=== PATIENT | male | born 1935 | race Caucasian/White ===

== ENCOUNTER 2018-11-30 14:34 | Inpatient (IN) | payer OTHER ==
[~2018-11-30] VITALS: Ht 167.6 cm; Wt 72.5 kg
[~2018-11-30 14:34] MED LIST: ACET325; ACET325 PO; ALBU90OI INH; ALUMAGX30; AMLO10 PO; AMLO5; AMLO5 PO; ASPI81EC; ASPI81EC PO; Atrovent Inha12.9 GM INH; BENA20 PO; BENADRYL 25MG; Benazepril HCl10 MG PO; CILO100 PO; CILO50; CLON.1 PO; CLON.3TP; CLON.3TP TP; CLOP75; CLOP75 PO; DIPH25 PO; DOCU100; DOCU100 PO; Dazidox10 MG PO; EDARBI 40 MG; FERR160 PO; FURO40 PO; GABA300 PO; GABA600 PO; GRALISE1 EACH PO; HYDACE10A; HYDACE10A PO; HYDACE10B PO; HYDACE5 PO; HYDR1TAB94 PO; INSLI100I SC; INSR10I SC; INSUASPI; INSUASPI SC; INSUL100I; INSULANI; INSULANI SC; IRON SULFATE; ISOMON30; ISOMON30 PO; Isosorbide Mono60 MG PO; LANS30EC; LANS30EC PO; LEVO750 PO; LISI5 PO; LORA1; METH5 PO; METO10 PO; METO100 PO; METO100ER PO; METO50 PO; MIRT15 PO; MORP15ER PO; MULVITB; NEBI10 PO; NITRO; OMEP20ER PO; OXYACE5T PO; OXYC10ER; OXYC10ER PO; POTCHL10ER PO; PROM25 PO; Prednisone50 MG PO; RAMI5 PO; REMERON; RENA VIT PO; SENN187 PO; SIMV10 PO; SIMV40 PO; SODBIC650 PO; VELTASSA8.4 GM PO; VITAMIN B COMPLEX; VITNEPH PO; Vitamin D2000 UNIT PO; ZINC220; ZINC220 PO; [UNRECOGNIZED DRUG - OTHER]; [UNRECOGNIZED DRUG - OTHER]
[2018-11-30] MEDS ORDERED: AMLO10 PO (15:02)
[2018-11-30] MEDS ORDERED: ATOR20 PO (15:03)
[2018-11-30 15:26] LABS: BASOPHILS ABSOLUTE AUTO 0.02 K/mm3 (0.00-0.23); BASOPHILS PERCENT AUTO 0 % (0-2); EOSINOPHILS PERCENT AUTO 0 % (0-6); Hematocrit 33.7 % (37.0-53.0); Hemoglobin 11.1 g/dL (13.5-17.5); IMMATURE GRAN ABSOLUTE AUTO 0.13 K/mm3 (0.00-0.10); IMMATURE GRAN PERCENT AUTO 1 % (0-1); LYMPHOCYTES ABSOLUTE AUTO 0.93 K/mm3 (0.84-5.20); LYMPHOCYTES PERCENT AUTO 7 % (21-46); MONOCYTES ABSOLUTE AUTO 0.26 K/mm3 (0.16-1.47); MONOCYTES PERCENT AUTO 2 % (4-13); Mean Corpuscular HGB 30.4 pg (26.0-34.0); Mean Corpuscular HGB Conc 32.9 g/dL (31.5-36.5); Mean Platelet Volume 10.6 fL (9.1-12.4); NEUTROPHILS ABSOLUTE AUTO 11.54 K/mm3 (1.96-9.15); NEUTROPHILS PERCENT AUTO 90 % (41-73); Platelet Count 336 K/mm3 (150-400); RDW Standard Deviation 47.9 fL (35.1-46.3); Red Blood Cell Count 3.65 M/mm3 (4.30-5.90); White Blood Cell Count 12.88 K/mm3 (4.00-11.30)
[2018-11-30 15:27] LABS: Mean Corpuscular Volume 92 fL (80-100)
[2018-11-30 15:48] LABS: Troponin I <0.015 ng/mL (0.000-0.040)
[2018-11-30 15:49] LABS: Alanine Aminotransfer (ALT/SGP 28 U/L (12-78); Albumin, Blood 3.3 g/dL (3.4-5.0); Albumin/Globulin Ratio 0.8 (0.8-1.8); Alk Phos 88 U/L (50-136); Anion Gap 11 mmol/L (6-16); Aspartate Aminotrans (AST/SGOT 10 U/L (12-37); Bilirubin, Total 0.3 mg/dL (0.1-1.0); Blood Urea Nitrogen 122 mg/dL (8-24); Bun/Creatinine Ratio 20.2 (12.0-20.0); CO2, Blood 17 mmol/L (21-32); Calcium, Blood 8.1 mg/dL (8.5-10.1); Chloride, Blood 112 mmol/L (98-108); Creatinine, Blood 6.04 mg/dL (0.60-1.20); Glomerular Filtration Rate 10 (60-); Glucose, Blood 261 mg/dL (70-99); Potassium, Blood 5.2 mmol/L (3.5-5.5); Sodium, Blood 140 mmol/L (136-145); Total Protein, Blood 7.3 g/dL (6.4-8.2)
[2018-11-30] MEDS ORDERED: GABA100 PO (19:39)
[2018-11-30] MEDS ORDERED: Ferrous Sulfat325 MG PO (20:42)
[2018-11-30] MEDS ORDERED: AMOX875 PO (20:42)
[2018-11-30] MEDS ORDERED: ALPR.5 PO (20:42)
[2018-12-01 04:02] LABS: BASOPHILS ABSOLUTE AUTO 0.02 K/mm3 (0.00-0.23); BASOPHILS PERCENT AUTO 0 % (0-2); EOSINOPHILS PERCENT AUTO 0 % (0-6); Hematocrit 34.3 % (37.0-53.0); IMMATURE GRAN PERCENT AUTO 1 % (0-1); LYMPHOCYTES ABSOLUTE AUTO 0.59 K/mm3 (0.84-5.20); LYMPHOCYTES PERCENT AUTO 8 % (21-46); MONOCYTES ABSOLUTE AUTO 0.09 K/mm3 (0.16-1.47); MONOCYTES PERCENT AUTO 1 % (4-13); Mean Corpuscular HGB 30.3 pg (26.0-34.0); Mean Corpuscular HGB Conc 32.1 g/dL (31.5-36.5); Mean Platelet Volume 10.8 fL (9.1-12.4); NEUTROPHILS ABSOLUTE AUTO 6.91 K/mm3 (1.96-9.15); NEUTROPHILS PERCENT AUTO 90 % (41-73); Platelet Count 310 K/mm3 (150-400); RDW Standard Deviation 48.9 fL (35.1-46.3); Red Blood Cell Count 3.63 M/mm3 (4.30-5.90); White Blood Cell Count 7.71 K/mm3 (4.00-11.30)
[2018-12-01 04:03] LABS: Mean Corpuscular Volume 95 fL (80-100)
[2018-12-01 04:20] LABS: Bun/Creatinine Ratio 21.8 (12.0-20.0); Calcium, Blood 7.7 mg/dL (8.5-10.1); Creatinine, Blood 5.64 mg/dL (0.60-1.20); Potassium, Blood 5.3 mmol/L (3.5-5.5)
--- NOTE | 2018-12-01 06:35 | NUR ---
SHIFT SUMMARY/ REDEIVED FROM ED AT 2015 LAST NOC. ABD CRAMPING REPORTED . AND CHRONIC PAIN AT BASELINE. ARTHRITIC. TACHEPNEC EXERTION W/ TRANSFER AND REPOSITIONING IN BED. SETTLED IN AND RESP RATE WNL . DOZING OFF TO SLEEP POST EATING SOME YOGURT. FLUIDS TAKEN AND H2 O GIVEN. REVIEWS NEGETIVE ASSESSMENT OF LONGTERM. SOCIAL SERVICE CONSULT ORDERED.EXTREME ANASARCA AND VARELA PATENT. REPORTS GREAT RELIEF POST VARELA PLACED IN ED AND PAIN MED WAS HELPFUL ALSO. VERY CLEAR MENTATION AND APPROPRIATE CONVERSATION. NOT EXACTLY SURE ABOUT EACH MED AND PLACED CALL TO LONGTERM AND NO ANSWER AND LEFT A MESSAGE. ENC TO SELF CARE W/ REPOSITIONING AND EXTREMELY STIFF AND PAINFUL BACK AND HAND JOINTS. AWARE NO ADDITIONAL PAIN MEDS ORDERED AND AGREES IT IS BASE LINE DISCOMFORT W/ CERTAIN MOVEMENT. 2-3 L ESTABLISHES WNL SAT. DENIES COPD . LUNGS SOUND VERY DIMINISHED AIR EXCHLANGE AND FAINT CRACKLES NOTED IN BASE. IVF DCD POST 1 LITER PER ORDER. NO ACUTE RESP ISSUES POST IVF. BP UP AND EARLY CATAPRES GIVEN. SR, FIRST DEGREE BBB. HR 70'S
--- NOTE | 2018-12-01 08:09 | NUR ---
ATTEMPT TO REACH DR PEREZ Attempt to reach provider regarding blood sugar of 425 this AM. Unable to reach provider, unable to leave message.
[2018-12-01 11:23] LABS: Glucose, Blood 610 mg/dL (70-99)
[2018-12-01] MEDS ORDERED: LOSA25 PO (11:30)
[2018-12-01] MEDS ORDERED: INSULANPEN SC (11:49)
[2018-12-01] MEDS ORDERED: Novolog Fl100 UNIT/1 SC (11:49)
[2018-12-01] MEDS ORDERED: Novolog Fl100 UNIT/1 (11:51)
[2018-12-01 13:16] LABS: Glucose, Blood 550 mg/dL (70-99)
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
[2018-12-02 05:07] LABS: Bun/Creatinine Ratio 22.8 (12.0-20.0); Calcium, Blood 7.9 mg/dL (8.5-10.1); Creatinine, Blood 5.17 mg/dL (0.60-1.20)
--- NOTE | 2018-12-02 06:54 | NUR ---
SHIFT SUMMARY. NO ACUTE CHANGES NOTED THIS SHIFT. PT WAS HYPERTENSIVE AT 185/76, PROVIDER WAS CALLED AND ORDERS OBTAINED FOR PRN HTN MEDICATION (SEE EMAR.) PT'S GLUCOSE THIS AM WAS CRITICAL LOW AT 42, PT WAS TREATED PER PROTOCOL,CBG WAS RECHECKED AND IT WAS 125. PT HAD NO COGNATIVE CHANGES DURING THIS TIME. PT DENIES ANY CHEST PAIN/PRESSURE, SOB OR N/V. VARELA IS PATENT, ATTACHED TO THE BED BED AND DRAINING TO GRAVITY. CALL LIGHT IN REACH, BED IS LOCKED AND LOW WILL CONTINUE TO MONITOR UNTIL REPORT IS GIVEN TO ONCOMING RN.
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
--- NOTE | 2018-12-02 19:43 | NUR ---
SHIFT SUMMARY Assumed care of pt at 0700. Report received from Yoon PALM. This AM, GENESIS Lazo notified this RN that pt was coughing up blood and having trouble breathing. Pt produced a quarter-sized amount of bloody sputum, which was different than the brown sputum this RN had previously visualized. RT Mariaelena notified that pt was having difficulty breathing. This RN encouraged pt to slow down his breathing, focusing on inhaling through his nose and exhaling through his mouth. Pt responded well to this breathing technique. Dr Salamanca updated by relief charge nurse Judi. Dr Salamanca in to see pt shortly afterwards. Discussed plan of care with provider. New orders entered. This RN requested nephrology consult from Dr Salamanca. New orders given. Pt stated he wanted this RN to call his son because "I don't think I am going to make it." This RN called the pt's son and left a message on his phone. The pt's son did not return the phone call. Pt's anxiety discussed with Dr Salamanca, new orders given. Nephrology consult notified by Judi PALM. New orders given. Pt continued to be anxious and tachypnic, so this RN disccused BiPAP with respiratory therapy and Dr Salamanca. CPAP/BIPAP protocol ordered. Pt responded well to CPAP and slept comfortably with CPAP in place for about 4 hours. Pt did not eat breakfast or lunch, therefore 6 units Humalog AC was held for these two meals. Additionally, Lantus was held as pt received 20 units as ordered, during previous night time babysitter. This evening, pt was breathing with more ease, but continued to verbalize impending doom, stating "I don't think I'm going to make it. My kidneys are giving out. I need to call my son so he knows what to do with my money and belongings." Chaplain Key notified. Dr Salamanca notified of pt's persistent hypertension. New orders entered by provider. Pt's son in to see pt this evening. Pt gave verbal permission for this RN to update the pt's son. The son inquires "What's going on? I had no idea my dad was even in the hospital until this evening." Update provided to son. Spoke regarding the pt's difficulty breathing and current kidney function as well as plan of care. Pt's son stated he had no additional questions. Bedside report given to Donny PALM.
[2018-12-03 04:02] LABS: Hematocrit 36.3 % (37.0-53.0); Hemoglobin 11.7 g/dL (13.5-17.5)
[2018-12-03 04:27] LABS: Alanine Aminotransfer (ALT/SGP 25 U/L (12-78); Albumin/Globulin Ratio 0.8 (0.8-1.8); Alk Phos 75 U/L (50-136); Anion Gap 12 mmol/L (6-16); Aspartate Aminotrans (AST/SGOT 10 U/L (12-37); Bilirubin, Total 0.5 mg/dL (0.1-1.0); Blood Urea Nitrogen 127 mg/dL (8-24); Bun/Creatinine Ratio 23.6 (12.0-20.0); CO2, Blood 17 mmol/L (21-32); Calcium, Blood 8.1 mg/dL (8.5-10.1); Chloride, Blood 112 mmol/L (98-108); Creatinine, Blood 5.38 mg/dL (0.60-1.20); Globulin, Blood 3.8 g/dL (2.2-4.0); Glomerular Filtration Rate 11 (60-); Glucose, Blood 258 mg/dL (70-99); Magnesium, Blood 2.4 mg/dL (1.6-2.4); Phosphorus, Blood 4.5 mg/dL (2.5-4.9); Potassium, Blood 5.4 mmol/L (3.5-5.5); Sodium, Blood 141 mmol/L (136-145); Total Protein, Blood 6.8 g/dL (6.4-8.2)
[2018-12-03 04:29] LABS: Prostate Specific Antigen 0.321 ng/mL (0.000-4.000)
--- NOTE | 2018-12-03 07:10 | NUR ---
MOTOR POOL DRIVER SUMMARY PT AAOX4 AND PLEASANT. COOPERATIVE WITH CARE. NO WHEEZING NOTED IN LUNGS THIS SHIFT. PT STATES "BREATHING FEELS A LITTLE BETTER TONIGHT". PT HAS BEEN ABLE TO REMAIN ON 2L O2 VIA NC THROUGH THE NIGHT, SATTING IN THE MID 90'S CONSISTENTLY. PT REPORTED ALL OVER CHRONIC PAIN THAT WAS RELIEVED WITH TYLENOL. PT REMAINS HYPERTENSIVE WITH MINIMAL RESPONSE TO IV HYDRALAZINE. SBP REMAINED IN 170'S EVEN AFTER HYDRALAZINE GIVEN. SPOKE WITH DR HOWARD REGARDING THIS, RECIEVED ORDER FOR IV LABETALOL. WILL CONTINUE TO MONITOR.
--- NOTE | 2018-12-03 13:06 | NUR ---
Spiritual care visit conducted. I entered patient's room and found him sitting in a chair in his room and alert. I introduced myself and patient welcomed me in. Therapeutic alliance was easily established and patient openly shared about his medical history, the pain of his divorce, his family unit complications and his work history. I listened empathically, provided companionship, heard confession and emotional support. Patient also stated that he plays guitar and said he would be interested in some music therapy which I agreed to supply if my schedule would allow for it. Patient thanked me for the visit.
--- NOTE | 2018-12-03 15:51 | NUR ---
Spiritual care visit conducted. Patient is known to this telegraphic typewriter operator from prior visits. Patient expressed an interest in music and guitar playing. I brought my guitar up to the patient so he could play and he did which evoked some emotions for him. I also played and sang a song for the patient which he said that he enjoyed. I also provided prayer and companionship. Patient responded well and showed evidence of an elevated mood. Patient expressed gratitude for the visit.
--- NOTE | 2018-12-03 20:04 | NUR ---
SHIFT SUMMARY Assumed care of pt at 0700. Report received from Yoon PALM. Pt remains on 2 LPM NC which is pt's home dose of oxygen. Pt refused to sit up in chair for breakfast, stating he was in too much pain. This RN encouraged mobility as pt has been in bed for over a day. Pt verbalized understanding that mobility was important but continued to refuse. Dr Salamanca in to see pt. Discussed the pt's blood pressures with provider. New orders entered. Also discussed positive sputum culture. Pt did not wear CPAP today. Decreased mood noted compared to previous day shifts. This RN requested Mechanical Engineering Intern Baron see pt. Pt assisted to chair by physical therapy. Pt remained in chair for about four hours. This afternoon, pt reported abdominal pain. Pt pointed to several locations among different quadrants when describing location. On palpation, all quadrants were tender with most pain in the RLQ. This RN placed call to Dr Salamanca to update. Dr Salamanca in to see pt. New orders given. Pt had one large bowel movement that was dark valladares/green in color. Bed maintained in lowest position. Call light in reach. Pt denies need at this time. Bedside report given to Jazlyn PALM.
--- NOTE | 2018-12-04 07:31 | NUR ---
shift summary: patient had x2 bm this shift, pain in abdomen improving. patient bs dropped drastically this shift, orange juice given with miranda improvement (see lab values). systolic blood pressures high, md notified and orders recieved but labetalol not given d/t fact that bp improved with different bp cuff. sanderson intact, patnet and draining well, call light within reach, bed low and locked and patient monitored closely.
--- NOTE | 2018-12-04 08:00 | NUR ---
PT LAYING IN BED AWAKE A/OX3, PLEASANT AND COOPERATIVE WITH CARE, FOLLOWS COMMANDS WELL, STATES HE IS COLD. PT IS ON 2LITERS 02 VIA N/C, RESP EVEN AND UNLABORED, NO COUGH NOTED, CLEAR IN UPPER KUMAR, CRACKLES IN BASES, HRR, TELE IN PLACE RUNNING SR PER MONITOR, SEE STRIP, EDEMA NOTED TO B/L LE AND ARMS, PP ARE FAINT, CAP REFILL <3 SEC, VS STABLE, AFEBRILE, IV SITE TO RIGHT ARM SITE IS CLEAR AND PATENT, BTX4, ABD FLAT SOFT NONTENDER, VARELA CATH DRAINING CLEAR YELLOW URINE, SKIN HAS BRUISINGS OTHERWISE INTACT. MARTINE, CALL LIGHT IN REACH.
[2018-12-04 08:49] LABS: Bun/Creatinine Ratio 24.7 (12.0-20.0); Calcium, Blood 8.3 mg/dL (8.5-10.1); Creatinine, Blood 5.86 mg/dL (0.60-1.20); Potassium, Blood 5.8 mmol/L (3.5-5.5)
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
--- NOTE | 2018-12-04 12:00 | NUR ---
cbg was over 500, lab draw was done, was in the 800's, call to Dr. Salamanca, he increased lantus to 20 gave extra 10 to make 20. will recheck. pt doing ok. call light in reach.
[2018-12-04 12:28] LABS: Glucose, Blood 866 mg/dL (70-99)
--- NOTE | 2018-12-04 13:45 | NUR ---
recheck registered high, lab actually went up to 892, Dr. Salamanca ordered to transfer to icu with insulin gtt. report given.
[2018-12-04 15:20] LABS: Glucose, Blood 897 mg/dL (70-99)
--- NOTE | 2018-12-04 16:39 | NUR ---
pt has been transfered to icu via bed for insulin gtt. report given to recieving nurse. all belongings went with pt.
--- NOTE | 2018-12-04 16:50 | NUR ---
ASSUMED CARE: REPORT RECIEVED FROM GWENDOLYN PALM. CBG CHECKED AND PT ON INSULIN GTT STARTING AT 5 UNITS/HR. VERIFIED WITH MARIVEL PALM. PT ON 2L SATTING AT 94%. AWAITING LAB FOR VERIFICATION OF BLOOD GLUCOSE.
[2018-12-04 18:03] LABS: Glucose, Blood 712 mg/dL (70-99)
--- NOTE | 2018-12-04 18:45 | NUR ---
SHIFT SUMMARY: PT TRANSFERRED FROM PCU THIS SHIFT FOR INCREASED BLOOD SUGARS. INSULIN DRIP AT 5 UNITS PER HOUR. AWAITING FURTHER LAB DRAWS FOR ACCURACY. PRASANNA AT 58 NOTED, SINUS RHYTHM OTHERWISE. NO FURTHER NEEDS OR CONCERNS NOTED AT THIS TIME
[2018-12-04 19:15] LABS: Glucose, Blood 578 mg/dL (70-99)
--- NOTE | 2018-12-04 19:31 | NUR ---
ASSUMED CARE PT. ALERT AND ORIENTED AT THIS TIME. DENIES PAIN. PT RESTING QUIELTY IN BED. CURRENTLY ON 2L NC, WHICH PT REPORTS HE USES AT HOME. CPAP AT BEDSIDE. PT. CURRENTLY ON INSULIN GTT AT 5U/HR. VARELA IN PLACE DRAINING TO GRAVITY. VSS AT THIS TIME. CALL LIGHT IN REACH.
--- NOTE | 2018-12-04 22:00 | NUR ---
DR. PAUL AT BEDSIDE.
--- NOTE | 2018-12-04 22:32 | NUR ---
CALL TO PROVIDER REGARDING INSULIN GTT ORDERS TO D/C INSULIN GTT AFTER BG BELOW 200, CONTINUE TO MONITOR BG CLOSELY AND RESTART INSULIN GTT IF NEEDED.
--- NOTE | 2018-12-05 01:36 | NUR ---
INSULIN GTT PLACED ON SB AT THIS TIME.
[2018-12-05 04:02] LABS: Magnesium, Blood 2.5 mg/dL (1.6-2.4)
[2018-12-05 04:04] LABS: Anion Gap 11 mmol/L (6-16); Blood Urea Nitrogen 152 mg/dL (8-24); Bun/Creatinine Ratio 27.1 (12.0-20.0); CO2, Blood 25 mmol/L (21-32); Calcium, Blood 8.1 mg/dL (8.5-10.1); Chloride, Blood 102 mmol/L (98-108); Creatinine, Blood 5.61 mg/dL (0.60-1.20); Glomerular Filtration Rate 10 (60-); Glucose, Blood 128 mg/dL (70-99); Phosphorus, Blood 6.7 mg/dL (2.5-4.9); Potassium, Blood 4.3 mmol/L (3.5-5.5); Sodium, Blood 138 mmol/L (136-145)
--- NOTE | 2018-12-05 04:43 | NUR ---
SHIFT SUMMARY PT. RESTING COMFORTABLY T/O NIGHT. PT. INSULIN GTT OFF THIS PM; WITH SUGARS RECHECKED PER ORDER. BG REMAINS STABLE AT THIS TIME. PT. VSS T/O SHIFT.
--- NOTE | 2018-12-05 18:14 | NUR ---
DOING VERY WELL THIS AFTERNOON. WATCHING TV. CHEMBGS WITH INSULIN COVERAGE DOING WERY WELL. HAS BEEN MED FLOOR STATUS. GOOD UA O/P FROM LASIX BID. EATING WELL STILL ON 1000ML PER 24 HOURS OF PO FLUID.
--- NOTE | 2018-12-05 19:30 | NUR ---
ASSUMED CARE OF PT, REPORT RECEIVED. PT IS RESTING QUIETLY RECLINING IN BED, C/O FEELING SOMEWHAT SHORT OF BREATH OTHERSWISE DENIES N/V, DENIES CP/PRESSURE, DENIES NUMBNESS/TINGLING EXCEPT FOR BASELINE NEUROPATHY. STATES THAT HIS HEELS HURT AND RATES PAIN 7/10 THAT STARTED THIS AFTERNOON, BILAT HEELS WITH SMALL AREAS OF REDNESS LESS THAN 1 CM, BLANCHES EASILY WITH BRISK CAP REFILL, PT ENCOURAGED TO FLOAT HEELS OFF BED, DISCUSSED RISK OF PRESSURE INJURY TO HEELS. LUNGS CLEAR UPPER BILAT, DIM BASES WITH FAINT, FINE CRACKLES, SATS MID 90S WITH OXYGEN AT 2 L/MIN VIA NC, RESP RATE 20, PT DENIES INCREASING SOB, DECLINES INTERVENTION AT THIS TIME. HRR, S1 S2 PRESENT, MAINTAINING BP, GENERALIZED EDEMA, NON PITTING, PULSES FULL AND PALPABLE, SKIN PWD. VARELA IN PLACE DRAINING CLEAR YELLOW URINE TO GRAVITY.
[2018-12-06 04:20] LABS: Hematocrit 35.2 % (37.0-53.0); Hemoglobin 11.7 g/dL (13.5-17.5)
[2018-12-06 04:41] LABS: Albumin, Blood 2.9 g/dL (3.4-5.0); Anion Gap 13 mmol/L (6-16); Blood Urea Nitrogen 148 mg/dL (8-24); Bun/Creatinine Ratio 25.4 (12.0-20.0); CO2, Blood 27 mmol/L (21-32); Calcium, Blood 8.2 mg/dL (8.5-10.1); Chloride, Blood 97 mmol/L (98-108); Creatinine, Blood 5.83 mg/dL (0.60-1.20); Glomerular Filtration Rate 10 (60-); Glucose, Blood 165 mg/dL (70-99); Magnesium, Blood 2.2 mg/dL (1.6-2.4); Phosphorus, Blood 5.8 mg/dL (2.5-4.9); Potassium, Blood 4.1 mmol/L (3.5-5.5); Sodium, Blood 137 mmol/L (136-145)
--- NOTE | 2018-12-06 07:40 | NUR ---
PT RESTS QUIETLY THROUGHOUT SHIFT, CONTINUED TO ENCOURAGE FLOATING HEELS, PT DOES VERBALIZE UNDERSTANDING THIS AM AFTER ATTEMPT TO STATE THAT PAIN TO HEELS IS "JUST MY NEUROPATHY" DISCUSSED REDDENED AREA TO HEELS AND THAT HE IS AT INCREASED RISK FOR PRESSURE RELATED INJURY. OTHERWISE NO ACUTE CHANGES THIS SHIFT.
--- NOTE | 2018-12-06 09:15 | NUR ---
ASSUMED CARE: REPORT RECEIVED FROM VARGHESE Gardner RN. ASSUMED CARE OF THIS PT AT APPROX 0700. ON ASSESSMENT, THE PT IS RESTING QUIETLY. HE DENIES NEEDS AT THIS TIME, STS CHRONIC PAIN TO BLE IS SLIGHTLY WORSE THAN BASELINE. RELIEF W/ REPOSITION. WILL CONTINUE TO MONITOR & UPDATE NEEDED.
--- NOTE | 2018-12-06 16:41 | NUR ---
BRENNA LAMBERT'Paulina AT 1630 WITH 1000CC CL. YELLOW URINE EMPTIED.
--- NOTE | 2018-12-06 19:40 | NUR ---
ASSESSMENT ASSUMED CARE OF PT. PT SLEEPING WHILE SITTING UP IN BED. AWAKENS EASILY TO VERBAL STIMULI. DENIES PAIN OR DISCOMFORT. LUNGS CLEAR BUT DECREASED IN THE BASE ON 2 LITERS O2 VIA NC. HEART RATE REGULAR, BP STABLE. PT MOVING SELF AROUND IN BED. IV TO RIGHT AC AND LEFT WRIST SALINE LOCKED, SITES CLEAR. BT+ ABD SOFT AND NONTENDER. ATTENDS CLEAN AND DRY.
--- NOTE | 2018-12-06 20:50 | NUR ---
BLOOD GLUCOSE/HS MEDS PT SLEEPING, AWAKENS EASILY. BLOOD GLUCOSE 198, 3 UNITS INSULIN GIVEN. HS MEDS GIVEN.
--- NOTE | 2018-12-06 21:45 | NUR ---
BLADDER SCAN/VARELA PT UP TO BSC WITH ONE ASSIST. HAD BM BUT NO VOID. BLADDER SCAN DONE [address] ROMERO. VARELA CATH 16 FR PLACED PT TOLERATED WELL. DR ROMERO SAID "NO UA NEEDED".
--- NOTE | 2018-12-07 03:35 | NUR ---
REASSESSMENT PT SLEEPING, AWAKENS EASILY. VSS. LABS DRAWN. PT REPOSITIONED. DENIES PAIN OR DISCOMFORT
[2018-12-07 04:01] LABS: Hematocrit 34.6 % (37.0-53.0); Hemoglobin 11.3 g/dL (13.5-17.5)
[2018-12-07 04:20] LABS: Albumin, Blood 2.8 g/dL (3.4-5.0); Anion Gap 13 mmol/L (6-16); CO2, Blood 31 mmol/L (21-32); Chloride, Blood 92 mmol/L (98-108); Creatinine, Blood 5.87 mg/dL (0.60-1.20); Glomerular Filtration Rate 10 (60-); Glucose, Blood 166 mg/dL (70-99); Magnesium, Blood 2.3 mg/dL (1.6-2.4); Phosphorus, Blood 5.6 mg/dL (2.5-4.9); Potassium, Blood 4.1 mmol/L (3.5-5.5); Sodium, Blood 136 mmol/L (136-145)
[2018-12-07 04:31] LABS: Blood Urea Nitrogen 153 mg/dL (8-24); Bun/Creatinine Ratio 26.1 (12.0-20.0)
--- NOTE | 2018-12-07 05:48 | NUR ---
SHIFT SUMMARY PT RESTING QUIETLY THROUGHTOUT THE NIGHT. TURNING AND MOVING SELF IN BED. VSS. URINE RETENTION NOTED WHEN PT UNABLE TO VOID AND BLADDER SCAN DONE. VARELA CATH PLACED WITH CLEAR YELLOW URINE DRAINING. UP TO BATHROOM ONCE WITH STANDBY ASSIST FOR BOWEL MOVEMENT. REPORT TO ON COMING NURSE
--- NOTE | 2018-12-07 06:15 | NUR ---
MD DR ROMERO INTO SEE PATIENT. LABS REVIEWED WITH DR ROMERO. RECIEVED ORDER FOR LABS 12/08/18.
--- NOTE | 2018-12-07 09:10 | NUR ---
ASSUMED CARE: REPORT RECEIVED FROM MARCY Gallardo RN. ASSUMED CARE OF THIS PT AT APPROX 0700. ON ASSESSMENT, THE PT IS SITTING UP IN BED FOR PO INTAKE. HE DENIES NEEDS OR PAIN AT THIS TIME & IS PLEASANT/COOPERATIVE W/ CARE. PLAN IS FOR POSS TX TO SNF IN [place] TODAY, PER D/C PLANNING. WILL CONTINUE TO MONITOR & UPDATE NEEDED.
--- NOTE | 2018-12-07 11:28 | NUR ---
Spiritual care visit conducted. As I entered the patient's room I found him sitting up in bed and alert. Patient shared about his concerns for placement after his stay in the hospital but stated that he was feeling stronger. I provided companionship and prayer. Patient responded well and showed signs of reduced stress.
--- NOTE | 2018-12-07 12:19 | NUR ---
Met with David today in the ICU. He is awake and A/O x4. This publicity writer has attempted to contact pt's PCP office to see if they have a POLST form on file. Pt is agreeable to fill out a new POLST form. Treatment options and resusitation information explained and questions answered. At this time pt wishes to be a full code, with full treatments and a trial of TF. Spoke with Dr. Salamanca who will sign pt's new POLST form. Will plan to scan completed, signed POLST form to medical records and to [place] POL[place] registry once it is complete.
--- NOTE | 2018-12-07 17:56 | NUR ---
Call received that POLST completed earlier with our RN and pt has been signed by the Dr. Copies faxed to medical records and original returned to chart.
--- NOTE | 2018-12-07 18:43 | NUR ---
SHIFT SUMMARY: PT REMAINS A&O, PLEASANT & COOPERATIVE W/ CARE. LS ARE DIM & OCCASIONALLY WHEEZING IN BASES. PT ON HOME DOSE OF O2, 2L NC W/ SATS > 92%. NO TELE. BT x4, PT HAS GOOD APPETITE & NO C/O NAUSEA. VARELA CATH IN PLACE FOR RETENTION, PT WILL LIKELY REQUIRE BLADDER TRAINING PRIOR TO VARELA REMOVAL AGAIN. VARELA IS PATENT/DRAINING CLEAR YELLOW URINE. PLAN IS FOR D/C TO SNF IN [place] ON THURSDAY (12/09/18) PER D/C PLANNING. WILL CONTINUE TO MONITOR & REPORT OFF TO ONCOMING RN.
[2018-12-08 04:42] LABS: Hematocrit 31.9 % (37.0-53.0); Hemoglobin 10.5 g/dL (13.5-17.5)
[2018-12-08 05:07] LABS: Albumin, Blood 2.8 g/dL (3.4-5.0); Anion Gap 14 mmol/L (6-16); Blood Urea Nitrogen 151 mg/dL (8-24); Bun/Creatinine Ratio 24.3 (12.0-20.0); CO2, Blood 28 mmol/L (21-32); Chloride, Blood 92 mmol/L (98-108); Creatinine, Blood 6.21 mg/dL (0.60-1.20); Glomerular Filtration Rate 9 (60-); Glucose, Blood 160 mg/dL (70-99); Phosphorus, Blood 5.3 mg/dL (2.5-4.9); Potassium, Blood 4.2 mmol/L (3.5-5.5); Prostate Specific Antigen 0.267 ng/mL (0.000-4.000); Sodium, Blood 134 mmol/L (136-145)
--- NOTE | 2018-12-08 05:21 | NUR ---
VSS, AFEBRILE, A/O, 1 PA W/FWW. 2LNC,20G L FA, VARELA FOR RETENTION, 1L FLUID RESTRICTION. SLEPT WELL. PLACEMENT ISSUE, February/Thursday
--- NOTE | 2018-12-08 19:26 | NUR ---
SHIFT SUMMARY OX3 PLEASANT. C/O NEUROPATHY TO LOWER EXT AND CONSTANT PAIN STATES "I TOOK OXYCODONE AND CONTIN FOR YEARS BUT WEANED MYSELF OFF AND DON'T WANT ANY OF THAT STUFF AGAIN". EATING AND DRINKING WELL. OOB TO BSC. STANDBY ASSIST. POSSIBLE PLACEMENT TOMORROW.
[2018-12-09 05:04] LABS: BASOPHILS ABSOLUTE AUTO 0.02 K/mm3 (0.00-0.23); BASOPHILS PERCENT AUTO 0 % (0-2); EOSINOPHILS ABSOLUTE AUTO 0.34 K/mm3 (0.00-0.68); EOSINOPHILS PERCENT AUTO 2 % (0-6); Hematocrit 31.2 % (37.0-53.0); Hemoglobin 10.3 g/dL (13.5-17.5); IMMATURE GRAN ABSOLUTE AUTO 0.09 K/mm3 (0.00-0.10); IMMATURE GRAN PERCENT AUTO 1 % (0-1); LYMPHOCYTES ABSOLUTE AUTO 2.33 K/mm3 (0.84-5.20); LYMPHOCYTES PERCENT AUTO 15 % (21-46); MONOCYTES ABSOLUTE AUTO 1.19 K/mm3 (0.16-1.47); MONOCYTES PERCENT AUTO 8 % (4-13); Mean Corpuscular HGB 30.7 pg (26.0-34.0); Mean Corpuscular Volume 93 fL (80-100); Mean Platelet Volume 11.5 fL (9.1-12.4); NEUTROPHILS ABSOLUTE AUTO 11.41 K/mm3 (1.96-9.15); NEUTROPHILS PERCENT AUTO 74 % (41-73); Platelet Count 228 K/mm3 (150-400); RDW Coefficient Variation 12.9 % (11.7-14.2); RDW Standard Deviation 43.9 fL (35.1-46.3); Red Blood Cell Count 3.35 M/mm3 (4.30-5.90); White Blood Cell Count 15.38 K/mm3 (4.00-11.30)
--- NOTE | 2018-12-09 05:17 | NUR ---
VSS, AFEBRILE, A/O, SLEPT WELL OVER NOC. FEW CALLS OR COMPLAINTS. PT IS STABLE AT THIS TIME.
[2018-12-09 05:39] LABS: Albumin, Blood 2.8 g/dL (3.4-5.0); Anion Gap 14 mmol/L (6-16); CO2, Blood 30 mmol/L (21-32); Calcium, Blood 8.1 mg/dL (8.5-10.1); Chloride, Blood 90 mmol/L (98-108); Creatinine, Blood 6.31 mg/dL (0.60-1.20); Glomerular Filtration Rate 9 (60-); Glucose, Blood 79 mg/dL (70-99); Magnesium, Blood 2.6 mg/dL (1.6-2.4); Phosphorus, Blood 6.4 mg/dL (2.5-4.9); Potassium, Blood 3.7 mmol/L (3.5-5.5); Sodium, Blood 134 mmol/L (136-145)
[2018-12-09 05:52] LABS: Blood Urea Nitrogen 158 mg/dL (8-24)
--- NOTE | 2018-12-09 06:11 | NUR ---
CRITICAL LAB VALUE: BUN 158. PHONED IN TO DR PEREZ AT 0610.
--- NOTE | 2018-12-09 12:48 | NUR ---
BF CBG 125, PT DECLINE 5 UNITS HUMALOG SCHEDULED W MEALS, LANTUS 25 UNIT GIVEN. PT STATE THAT NEXT BLOOD SUGAR MAY BE ELEVATED. LUNCH CBG 476, 5 UNIT SCHEDULED + 12 UNIT MED S/S GIVEN. DR HOPKINS NOTIFIED, NO CHANGE IN INSULIN ORDERS @ THIS TIME.
--- NOTE | 2018-12-09 15:54 | NUR ---
SUMMARY PT IS A/O X4, PLEASANT AFFECT. HE STATE CONTINUING WEAKNESS/FATIGUE HOWEVER STATES FEELS IMPROVING SOMEWHAT. GAIT CONTINUES WEAK/UNSTEADY, SBA TO CHAIR/BSC. DX ARF, GFR 9, DR ROMERO MANAGING RENAL FX, PT IS COMPLIANT W FL REST 1L/DAY. VARELA CATH CONTINUES, PATENT, DRDANIEL YELLOW URINE. PT STATE BACK & BILAT LEG PAIN, PRN TYLENOL PROVIDE GOOD RELIEF. PT/OT IN FOR THERAPY TODAY. BLOOD SUGARS LABILE, DR TORRE, MONITORING. O2 @ 2L, HOME DOSE, SOB W EXERTION. VSS.
--- NOTE | 2018-12-09 16:12 | NUR ---
Spiritual care visit conducted. Patient was sleeping when I entered the room and was a bit grumpy when I spoke his name. He became much more gracious once he recognized me. Patient stated that he has been fatigued beyond what he believes to be normal. Patient also said that he was frustrated at having a delay in moving to [facility]. I listened empathically, normalized patient's experience and provided prayer. Patient responded well and thanked me for the visit.
--- NOTE | 2018-12-09 21:58 | NUR ---
Assumed care of patient at 1930- recieved report from off-going nurse.
[2018-12-10 05:20] LABS: Hematocrit 32.5 % (37.0-53.0); Hemoglobin 10.4 g/dL (13.5-17.5)
[2018-12-10 05:58] LABS: Magnesium, Blood 2.6 mg/dL (1.6-2.4)
[2018-12-10 06:01] LABS: Albumin, Blood 2.8 g/dL (3.4-5.0); Anion Gap 16 mmol/L (6-16); Blood Urea Nitrogen 148 mg/dL (8-24); Bun/Creatinine Ratio 23.2 (12.0-20.0); CO2, Blood 29 mmol/L (21-32); Chloride, Blood 89 mmol/L (98-108); Creatinine, Blood 6.39 mg/dL (0.60-1.20); Glomerular Filtration Rate 9 (60-); Glucose, Blood 53 mg/dL (70-99); Phosphorus, Blood 6.2 mg/dL (2.5-4.9); Sodium, Blood 134 mmol/L (136-145)
--- NOTE | 2018-12-10 06:50 | NUR ---
shift summary:Pt did well overnight. Blood sugar last pm was 94 so no coverage needed. Pt on fluid restriction 1 liter. Pt sleeping most of shift with no c/o discomfort. Velasco in place- draining ok.
--- NOTE | 2018-12-10 13:45 | NUR ---
DR HOPKINS PLACE ORDERS FOR TRANSFER TO SNF. SOC SERV MAKE ARRANGEMENT FOR TRANSFER VIA REEDS W/C VAN @ APPROX 1600. DR NICHOLS PT WILL GO TO REHAB WITH NICHOLE MALIK IN PLACE D/T RETENTION & F/U WITH DR ROMERO FOR REMOVAL. IV D/C INTACT. FURNACE MASON PROVIDE BEDBATH. DRY PURPLE BRUISE NOTED TO BILAT HEELS, COBBLER MCKAYNÉSTOR RAMIREZ NOTIFIED, STATE DOES NOT APPEAR TO PRESSURE ULCER HOWEVER STATE TO DOCUMENT & REPORT TO AMANDANR RN FOR CLOSE MX. REPORT CALLED TO RYAN LADD RN.
[2018-12-10] MEDS ORDERED: FURO80 PO (14:25)
[2018-12-10] MEDS ORDERED: CLON.3 (14:32)
[2018-12-10] MEDS ORDERED: NITR.4SL SL (14:34)
[2018-12-10] MEDS ORDERED: CEFU500T30 (14:42)
[2018-12-10] MEDS ORDERED: DOCU100 PO (14:50)
[2018-12-10] MEDS ORDERED: MIRT15 (14:51)
[2018-12-10] MEDS ORDERED: MIRALAX17 GM PO (14:52)
[2018-12-10] MEDS ORDERED: TAMS.4ER (14:53)
[2018-12-10] MEDS ORDERED: SACC250C ×2 (15:04→15:06)
== END 2018-12-10 16:09 | DRG 682 ==
LOC: ER 14:34 → PCU 16:44 → ERHOLD 16:44 → PCU 20:20 → ICUW 12-04 16:39 → MEDS 12-07 19:40 → ENPENDDIS 12-10 12:58 → MEDS 12-10 16:09
PROVIDERS: Emergency Medicine; Internal Medicine; Internal Medicine Nephrology; ADMIT Hospitalist
DX: N17.9 Acute kidney failure, unspecified (principal); I50.33 Acute on chronic diastolic (congestive) heart failure; J96.21 Acute and chronic respiratory failure with hypoxia; G92 Toxic encephalopathy; N13.8 Other obstructive and reflux uropathy; N39.0 Urinary tract infection, site not specified; E87.1 Hypo-osmolality and hyponatremia; E87.2 Acidosis; N18.4 Chronic kidney disease, stage 4 (severe); N40.1 Benign prostatic hyperplasia with lower urinary tract symptoms; J44.9 Chronic obstructive pulmonary disease, unspecified; J84.10 Pulmonary fibrosis, unspecified; E11.22 Type 2 diabetes mellitus with diabetic chronic kidney disease; B96.1 Klebsiella pneumoniae [K. pneumoniae] as the cause of diseases classified elsewhere; E87.5 Hyperkalemia; E83.39 Other disorders of phosphorus metabolism; K59.00 Constipation, unspecified; E88.09 Other disorders of plasma-protein metabolism, not elsewhere classified; I25.10 Atherosclerotic heart disease of native coronary artery without angina pectoris; Z66 Do not resuscitate; F17.210 Nicotine dependence, cigarettes, uncomplicated; Z99.81 Dependence on supplemental oxygen; Z79.4 Long term (current) use of insulin; Z88.6 Allergy status to analgesic agent; Z88.8 Allergy status to other drugs, medicaments and biological substances; Z79.02 Long term (current) use of antithrombotics/antiplatelets; Z79.82 Long term (current) use of aspirin; Z79.899 Other long term (current) drug therapy
CPT/HCPCS: 36415; 51702; 51798; 71046; 74176; 76770; 80048; 80053; 80069; 82947; 83735; 83880; 84100; 84484; 85014; 85018; 85025; 87070; 87077; 87186; 87205; 93005; 93010; 93306; 94640; 94660; 94760; 94762; 96374-59; 97110; 97116; 97162; 97166; 97530; 97535; 99285-25; G0103; J0360; J1650; J1815; J1940; J2930; J3010; J7030

== ENCOUNTER 2018-12-20 06:37 | Inpatient (IN) | payer OTHER ==
[~2018-12-20] VITALS: Ht 167.6 cm; Wt 74.1 kg
[~2018-12-20 06:37] MED LIST changes: +ALPR.5 PO; +AMOX875 PO; +ATOR20 PO; +CEFU500T30; +CLON.3; +FURO80 PO; +Ferrous Sulfat325 MG PO; +GABA100 PO; +INSULANPEN SC; +LOSA25 PO; +MIRALAX17 GM PO; +MIRT15; +NITR.4SL SL; +Novolog Fl100 UNIT/1; +Novolog Fl100 UNIT/1 SC; +SACC250C; +TAMS.4ER
[2018-12-20] MEDS ORDERED: POTA10T PO (07:30)
[2018-12-20] MEDS ORDERED: Tamiflu30 MG PO (07:32)
[2018-12-20] MEDS ORDERED: Isosorbide Mono60 MG PO (07:36)
[2018-12-20] MEDS ORDERED: ACET325 PO (07:37)
[2018-12-20] MEDS ORDERED: Acidophilus La100 GM PO (07:37)
[2018-12-20] MEDS ORDERED: [UNRECOGNIZED DRUG - REMARK] (07:39)
[2018-12-20 08:01] LABS: BASOPHILS ABSOLUTE AUTO 0.08 K/mm3 (0.00-0.23); BASOPHILS PERCENT AUTO 1 % (0-2); EOSINOPHILS ABSOLUTE AUTO 0.46 K/mm3 (0.00-0.68); EOSINOPHILS PERCENT AUTO 3 % (0-6); Hematocrit 30.2 % (37.0-53.0); Hemoglobin 9.8 g/dL (13.5-17.5); IMMATURE GRAN ABSOLUTE AUTO 0.09 K/mm3 (0.00-0.10); IMMATURE GRAN PERCENT AUTO 1 % (0-1); LYMPHOCYTES ABSOLUTE AUTO 1.59 K/mm3 (0.84-5.20); LYMPHOCYTES PERCENT AUTO 11 % (21-46); MONOCYTES ABSOLUTE AUTO 1.17 K/mm3 (0.16-1.47); MONOCYTES PERCENT AUTO 8 % (4-13); Mean Corpuscular HGB 30.2 pg (26.0-34.0); Mean Corpuscular HGB Conc 32.5 g/dL (31.5-36.5); Mean Corpuscular Volume 93 fL (80-100); Mean Platelet Volume 9.9 fL (9.1-12.4); NEUTROPHILS ABSOLUTE AUTO 10.74 K/mm3 (1.96-9.15); NEUTROPHILS PERCENT AUTO 76 % (41-73); Platelet Count 616 K/mm3 (150-400); RDW Coefficient Variation 12.4 % (11.7-14.2); RDW Standard Deviation 42.5 fL (35.1-46.3); Red Blood Cell Count 3.25 M/mm3 (4.30-5.90); White Blood Cell Count 14.13 K/mm3 (4.00-11.30)
[2018-12-20 08:16] LABS: International Normalized Ratio 1.07; Prothrombin Time Results 11.3 Sec (9.7-11.5)
[2018-12-20 08:23] LABS: Albumin, Blood 2.7 g/dL (3.4-5.0); Albumin/Globulin Ratio 0.5 (0.8-1.8); Bilirubin, Total 0.3 mg/dL (0.1-1.0); Bun/Creatinine Ratio 25.2 (12.0-20.0); Calcium, Blood 8.2 mg/dL (8.5-10.1); Creatinine, Blood 4.88 mg/dL (0.60-1.20); Globulin, Blood 5.2 g/dL (2.2-4.0); Potassium, Blood 3.6 mmol/L (3.5-5.5); Total Protein, Blood 7.9 g/dL (6.4-8.2)
--- NOTE | 2018-12-20 09:32 | NUR ---
PT ARRIVED BACK TO RECOVERY ROOM WITH PERMACATH IN PLACE RIGHT IJ WITH INTACT TEGEDERM DRESSING WITH SLIGHT OOZING. PT DENIES CP. CALL LIGHT IN REACH. PT DENIES ANY PAIN.
--- NOTE | 2018-12-20 10:32 | NUR ---
PT ARRIVED FROM [facility] THIS MORNING WITH INDWELLING URINARY CATHETER TO GRAVITY BAG. LITE YELLOW URINE WAS NOTED.
--- NOTE | 2018-12-20 11:51 | NUR ---
DR RODRIGUEZ AWARE OF HTN WITH PT.
--- NOTE | 2018-12-20 18:01 | NUR ---
NURSING SUMMARY SLEEPY, WAKES EASILY TO VOICE. PTT > 139, NEW DIALYSIS PERM-A-CATH IN RIGHT UPPER CHEST OOZING BLOOD. LEFT BRACHIAL SHEATH REMAINS IN PLACE, NOTED BLEEDING AT SITE THAT REMAINS WITHIN THE DRESSING, ARM BOARD IN PLACE. GAVE PROTAMINE 20 MG IVP AT 1800, NEXT PTT SCHEDULED FOR 1900. ONCE PTT < 50, THE LEFT BRACHIAL SHEATH CAN BE PULLED. OKAY TO CALL ART TO COME IN TO PULL THE SHEATH WHEN READY. C/O BACK PAIN UPON ARRIVAL TO ICU, GAVE FENTANYL 50 MCG IVP, GAVE NORCO 2 TABS. ADA DIET, TOO SLEEPY TO EAT, HELD INSULIN. RIGHT FOREARM SALINE LOCK. VARELA IN PLACE FROM HOME, EMPTIED 725 YELLOW URINE.
--- NOTE | 2018-12-20 18:21 | NUR ---
VARELA DISCONTINUED HOME VARELA AND INSERTED NEW VARELA CATHETER. COLLECTED URINALYSIS AND SENT TO LAB.
[2018-12-20 18:34] LABS: Source, Urine Catheter
[2018-12-20 18:41] LABS: Appearance, Urine Cloudy (Clear); Bilirubin, Urine Neg (Neg); Blood, Urine 4+ (Neg); Color, Urine Yellow (P-Yellow); Glucose Qualitative, Urine 1+ (Neg); Ketones, Urine Neg (Neg); Leukocyte Esterase, Urine 3+ (Neg); Nitrite, Urine Neg (Neg); Protein, Urine 4+ (Neg); Specific Gravity, Urine 1.015 (1.003-1.022); Urobilinogen, Urine NORM (Normal)
[2018-12-20 18:50] LABS: Bacteria Many /hpf; Squamous Epithelial Cells Not Seen /hpf (Few); White Blood Cells, Urine 25-50 /hpf (0-5)
[2018-12-20 18:51] LABS: Amorphous Mod (0-Heavy)
--- NOTE | 2018-12-20 19:15 | NUR ---
NURSING SUMMARY CHANGED RIGHT CHEST PERM-A-CATH DIALYSIS SITE DRESSING, CONTINUES TO OOZE BLOOD AFTER PT RECEIVED PROTAMINE 20MG IV, PTT DRAWN AT 1900, AWAITING RESULTS TO DETERMINE WHEN LEFT BRACHIAL SHEATH COULD BE REMOVED. REPORT GIVEN TO NÉSTOR KWONG, WHOM ASSUMED CARE OF PT.
--- NOTE | 2018-12-20 20:30 | NUR ---
[facility] AT BEDSIDE FOR HD TONIGHT. PER ROZ, SHE IS UNABLE TO LOCATE PHYSICIAN APPROVAL TO USE PERMACATH, UNABLE TO LOCATE IMAGING STUDIES. HEART CENTER DOCUMENTATION REVIEWED BY THIS RN AND UNABLE TO LOCATE PHYSICIAN APPROVAL FOR PERMACATH USE.
--- NOTE | 2018-12-20 21:40 | NUR ---
SPOKE WITH DR HOWARD REGARDING LINE PLACEMENT VERIFICATION CXR, APPROVAL RECEIVED FOR PERMACATH USE FOR HD AT THIS TIME.
--- NOTE | 2018-12-20 21:47 | NUR ---
DIALYSIS IN PROGRESS, ROZ AT REMAINS AT BEDSIDE. HEART CENTER RN ART WEEKLY AT BEDSIDE FOR BRACHIAL SHEATH REMOVAL, PT TOLERATED WELL.
--- NOTE | 2018-12-20 22:45 | NUR ---
PT C/O CHEST PAIN TO HAND PATCHER, ON ASSESSMENT, PT STATES THAT PAIN IS A BURNING SENSATION IN A ALONG THE MIDLINE OF STERNUM UP TO THE BACK OF HIS THROAT, STATES THAT THE PAIN IS THROBBING IN NATURE, STATES THAT HE HAS NEVER FELT THIS PAIN BEFORE, RAISING HOB IMPROVES PAIN TO 8/10 FROM 12/10, SIPS OF ICE WATER ALSO PROVIDE SOME RELIEF. PT STATES THAT HE IS NAUSEATED WELL, ZOFRAN ADMIN WILL MONITOR.
--- NOTE | 2018-12-20 23:00 | NUR ---
PT STATES THAT PAIN HAS IMPROVED TO 2-4/10 AND THAT NAUSEA IS IMPROVED WELL. WILL MONITOR.
--- NOTE | 2018-12-20 23:35 | NUR ---
DIALYSIS NEARING COMPLETION, PT STATES THAT NAUSEA IS FULLY RESOLVED AT THIS TIME. HS MEDS ADMIN WHOLE WITH WATER, PT TOLERATES WELL.
--- NOTE | 2018-12-21 00:05 | NUR ---
PT C/O HIGH LEVEL OF THROBBING PAIN TO LEFT UPPER ARM NEAR PREVIOUS ARTERIAL ACCESS SITE, NO EXTERNAL BLEEDING OR COLOR CHANGE IS NOTED NEAR SITE HOWEVER SOME INCREASED HARDNESS IS NOTED JUST DISTAL TO SITE, PRESSURE HELD X 15 MINUTES, CIRCUMFRENCE MEASURED WITH PAPER STRIP AT BEDSIDE, PAPER STRIP MARKED AND ARM MARKED X 2 LOCATIONS WILL MONITOR. PT C/O HIGH PAIN WITH PRESSURE TO SITE, FENTANYL ADMIN FOR PAIN CONTROL, PT CONTINUED TO C/O 10/10 PAIN WHILE PRESSURE WAS HELD, ON RELEASE OF PRESSURE PT REPORTS PAIN DECREASED TO 1/10 WILL MONITOR.
--- NOTE | 2018-12-21 00:34 | NUR ---
DIALYSIS LATE PUTTING PT ON DUE TO NOT HAVING AN XRAY OF CVC PLACEMENT. ORDERED STAT XRAY AND HAD DR NEFF READ IT .
--- NOTE | 2018-12-21 02:04 | NUR ---
LEFT ARM ACCESS SITE CONTINUES STABLE AT THIS TIME, SOFTER TO PALPATION.
[2018-12-21 03:44] LABS: Hematocrit 25.5 % (37.0-53.0); Hemoglobin 8.3 g/dL (13.5-17.5); Mean Corpuscular HGB 31.2 pg (26.0-34.0); Mean Corpuscular HGB Conc 32.5 g/dL (31.5-36.5); Mean Corpuscular Volume 96 fL (80-100); Mean Platelet Volume 9.8 fL (9.1-12.4); Platelet Count 535 K/mm3 (150-400); RDW Coefficient Variation 12.5 % (11.7-14.2); RDW Standard Deviation 43.6 fL (35.1-46.3); Red Blood Cell Count 2.66 M/mm3 (4.30-5.90); White Blood Cell Count 11.34 K/mm3 (4.00-11.30)
[2018-12-21 04:01] LABS: Albumin, Blood 2.4 g/dL (3.4-5.0); Anion Gap 8 mmol/L (6-16); Blood Urea Nitrogen 61 mg/dL (8-24); CO2, Blood 33 mmol/L (21-32); Calcium, Blood 7.9 mg/dL (8.5-10.1); Chloride, Blood 96 mmol/L (98-108); Glomerular Filtration Rate 22 (60-); Glucose, Blood 127 mg/dL (70-99); Magnesium, Blood 2.1 mg/dL (1.6-2.4); Phosphorus, Blood 4.5 mg/dL (2.5-4.9); Potassium, Blood 3.8 mmol/L (3.5-5.5); Sodium, Blood 137 mmol/L (136-145)
--- NOTE | 2018-12-21 06:25 | NUR ---
PT AWAKE UNTIL AFTER 0100 THIS AM. SITE TO LEFT UPPER ARM ARTERIAL ACCESS SHEATH DC'D BY HEART CENTER RN LAST EVENING, PT C/O PAIN TO SITE X 1 FOLLOWING REMOVAL AT WHICH TIME A SMALL AREA OF INCREASED FIRMNESS WAS NOTED AND MANUAL PRESSURE WAS AGAIN HELD, MEASUREMENTS OBTAINED AFTER MANUAL PRESSURE WAS HELD 34.5 CM UPPER PORTION OF UPPER ARM AND 30.75 CM AT LOWER PORTION OF UPPER ARM, NO INCREASED PAIN OR SWELLING AFTERWARDS. RIGHT CHEST PERMACATH CONTINUES OOZING, UNABLE TO REINFORCE DRESSING AT THIS TIME, PREV DRESSING REMOVED, SITE CLEANSED WITH CHLORHEXADINE SWABS USING STERILE TECHNIQUE AND RITA DRESSINGS APPLIED TO SITE, 2 LB SANDBAG PLACED OVER DRESSINGS PT IS TOLERATING WELL AT THIS TIME.
--- NOTE | 2018-12-21 12:43 | NUR ---
REASSESSMENT: PT WAS NOT FEELING WELL THIS MORNING, BUT AFTER HIS BLOOD SUGAR CAME UP HE REPORTS IT HE FELT A LITTLE BETTER. HE HAS SPENT THE MORNING RESTING. LUNGS ARE CLEAR, JUST DIM IN THE BASES. REMAINS ON 4L/NC, WHICH PT REPORTS HE WEARS 3-4L/NC ALL THE TIME AT HOME. SR, BP STABLE SINCE HE RECEIVED HIS MORNING MEDS. VARELA WAS REMOVED, PT HAS YET TO VOID. PERMA CATH SITE IS BRUISED AT THE PUNCTURE SITE, WHICH IS UNCHANGED, AND HAS NOT HAD ANY FURTHER BLEEDING. BRACHIAL SITE IS STABLE WELL WITH CIRCUMFERENCE OF UPPER MARKING 13.5CM AND LOWER MARKING 12.75CM.
--- NOTE | 2018-12-21 17:38 | NUR ---
SHIFT SUMMARY: PT WAS ALERT AND ORIENTED THIS MORNING, BUT THIS AFTERNOON AFTER SLEEPING HE IS DIFFICULT TO AROUSE. HIS BLOOD SUGAR WAS IN THE 60S AT 1600 AND HE WAS ABLE TO DRINK 6 OZ OF ORANGE JUICE, BUT WHEN DINNER TRAY WAS BROUGHT IN HE WOULD ONLY SAY OW TO A STERNAL RUB. PT IS TO RECEIVE DIALYSIS TONIGHT, BUT DR. VILLAFANA STILL INFORMED OF CHANGE IN MENTATION. GAVE INSTRUCTIONS TO SEE IF PT'S MENTATION IMPROVES WITH DIALYSIS THIS EVENING. HR REMAINS IN THE 50S AND 60S, BP REMAINS STABLE. LUNGS CLEAR, BUT DIM IN THE BASES AND STILL ON HIS 3-4L/NC OF HOME OXYGEN. PT'S L ARM IS STABLE WITH CIRCUMGERENCE 13.5 INCHES AT THE UPPER MARKING AND 11.5 INCHES AT THE LOWER MARKING. SITE IS C/D/I AND PERMA CATH SITE IS C/D/I WELL. PT DOES COMPLAIN OF PAIN IN THE L ARM WHEN IT IS MOVED, KEEPING IT ELEVATED ON A PILLOW. PT HAS NOT VOIDED BUT BLADDER SCAN SHOWED ONLY 30ML OF URINE IN HIS BLADDER.
--- NOTE | 2018-12-21 19:15 | NUR ---
REPORT RECIEVED FROM OFF GOING RN HALEY Schaefer RN. MONITOR INTACT SHOWING SINUS RHYTHM/SINUS PRASANNA. HEART RATE 50'S-60'S. DIALYSIS IN PROGRES. DENIES DISCOMFORT DROWSY. AWAKENS TO VERBAL STIMULI MOVES ALL EXTREMITIES. STATES L ARM " SORE" AND REFUSES TO MOVE IT. POSITIONED ON L SIDE. STATES "COLD" WARM BLANKET OBTAINED. ARM BOARD IN PLACE PERMACATH SITE CLEAR DRY INACT. PUNCTURE SITE CLEAR DRY INTACT. O2 IN PLACE AT 4L/MIN PER NASAL CANNULA SPO2 88-96% LUNG SOUNDS CLEAR UPPER LOBES WITH DECREASED SOUNDS IN THE BASES. RESPIRATIONS REGULAR AND EASY AT REST. ABDOMEN SOFT WITH BOWEL SOUNDS FOUR QUADS. LOWER EXTREMITIES WARM/DRY WIGGLES TOES TO REQUEST. CONTINUE TO MONITOR AND REPORT CHANGE IN PATIENT CONDITION. RECIEVING PRBC WITH DIALYSIS.
--- NOTE | 2018-12-22 00:20 | NUR ---
DR HOWARD NOTIFIED OF DIFFICULTY TO AROUSE AND BLOOD GLUCOSE OF 67 TOLERATES MILK WELL AFTER REPOSITIONING. RECHECK OF BLOOD GLUCOSE 103 ORDERS NOTED. WILL CONTINUE TO MONITOR AND REPORT CHANGE IN PATIENT CONDITION.
[2018-12-22 04:26] LABS: Hematocrit 28.3 % (37.0-53.0); Hemoglobin 9.1 g/dL (13.5-17.5)
[2018-12-22 04:42] LABS: Magnesium, Blood 2.1 mg/dL (1.6-2.4)
[2018-12-22 04:45] LABS: Albumin, Blood 2.3 g/dL (3.4-5.0); Anion Gap 6 mmol/L (6-16); Blood Urea Nitrogen 36 mg/dL (8-24); Bun/Creatinine Ratio 11.4 (12.0-20.0); CO2, Blood 35 mmol/L (21-32); Calcium, Blood 7.9 mg/dL (8.5-10.1); Chloride, Blood 96 mmol/L (98-108); Creatinine, Blood 3.17 mg/dL (0.60-1.20); Glomerular Filtration Rate 20 (60-); Glucose, Blood 43 mg/dL (70-99); Phosphorus, Blood 3.9 mg/dL (2.5-4.9); Potassium, Blood 3.7 mmol/L (3.5-5.5); Sodium, Blood 137 mmol/L (136-145)
--- NOTE | 2018-12-22 05:39 | NUR ---
DR BLANCA ON PHONE ORDERS NOTED RE BLOOD GLUCOSE CONTINUE TO MONITOR AND REPORT CHANGE IN PATIENT CONDITION
--- NOTE | 2018-12-22 06:23 | NUR ---
SHIFT SUMMARY: MONITOR INTACT SHOWING SINUS RHYTHM HEART RATE 60'S. LETHARGIC HOWEVER AROUSES TO VERBAL STIMULI. LUNG SOUNDS CLEAR UPPER LOBERS RESPIRATIONS REGULAR AND EASY WITH O2 IN PLACE AT 3L/MIN.DECREASED SOUNDS IN THE BASES. ABDOMEN SOFT WITH BOWEL SOUNDS FOUR QUADS. NO URINE OUTPUT THIS SHIFT CIRCUMFERENCE OF UPPER ARM 31CM AND LOWER 25CM. DRESSING D/I WITH SLIGHT OLD DRAINAGE. PERMA CATH SITE BRUISED BUT DRY/INTACT.HEEL PROTECTORS IN PLACE BOTH HEELS. CONTINUE TO MONITOR AND REPORT CHANGE IN PATIENT CONDITION
--- NOTE | 2018-12-22 07:30 | NUR ---
ASSUMED CARE OF PATIENT; SEE ASSESSMENT CHARTING FOR DEAILS. LUNGS CLEAR BUT DIMINISHED IN BASES. OXYGEN AT 3L/MIN VIA NC. CURLS SELF UP IN BALL; ACCOUNTING TECHNICIAN AND RN PULLED PATIENT UP IN BED AND RAISED HOB FOR BREAKFAST. CBG WAS 71; RN FED PATIENT HIS SCRAMBLED EGGS, SOME MILK, AND PILLS IN APPLESAUCE; DID NOT WANT ANYTHING ELSE. DEPENDS IN PLACE; PATIENT INCONTINENT OF URINE. NO IV FLUIDS INFUSING; SALINE LOCK IN RAC. PATIENT SLEEPY; ROUSES TO VERBAL STIMULI AND IS COOPERATIVE. MUST BE MONITORED CLOSELY WHEN EATING D/T ALMOST A NARCOLEPSY INCIDENT WILL HAPPEN; PATIENT WILL BE CHEWING AND THEN NODS HEAD OFF TO THE RIGHT AND STARTS SNORING; RN HAVING TO WAKE PATIENT UP T/O MEAL.
[2018-12-22 08:17] LABS: HBSAG SCREEN Negative (Negative); HEP A AB, IGM Negative (Negative); HEP B CORE AB, IGM Negative (Negative); HEP C VIRUS AB 0.1 (0.0-0.9)
--- NOTE | 2018-12-22 11:45 | NUR ---
CBG 41; NO D50 AVAILALE ON EMAR; RN T/C TO DR. PEREZ RE: HYPOGLYCEMIA; ORDERED 25ML OF D50 SYRINGE FOR NOW AND PRN ONGOING ISSUES. ALSO WANTS D10 (IVF) TO INFUSE AT 100/HR IF ANOTHER HYPOGLYCEMIC INCIDENT REOCCURS.
--- NOTE | 2018-12-22 12:30 | NUR ---
PATIENT MORE ALERT BUT STILL DRIFTS OFF TO SLEEP WHEN CHEWING; EATING PUDDING AND DRINKING TOMATO SOUP, AND MILK AND THEN GIVEN MACARONI AND CHEESE; RN FED PATIENT T/O MEAL.
--- NOTE | 2018-12-22 14:07 | NUR ---
CBG 146; PATIENT RESTING COMFORTABLY.
--- NOTE | 2018-12-22 16:57 | NUR ---
CBG AC DINNER IS 101; RN FED PATIENT DINNER; SLOW BUT STEADY; RN FED PATIENT. MORE ALERT AND STAYING AWAKE T/O MEAL; UNLIKE LUNCH MEAL.
--- NOTE | 2018-12-22 17:02 | NUR ---
Spiritual care visit attempted. I attempted to visit yesterday and today only to find the patient in a deep sleep. I will continue to remain available to patient.
--- NOTE | 2018-12-22 18:21 | NUR ---
SUMMARY: SON VISITING WITH PATIENT; PATIENT TALKING; SOMETIMES DIFFICULT TO ALWAYS UNDERSTAND BUT VERY SAAVY; UP ON THE CURRENT EVENTS AND WATCHING THE EVENING NEWS; DISLIKES MOST OF THE POLITICIANS IN THE NEWS. OVERALL PATIENT VERY PLEASANT AND COOPERATIVE. DEPENDS CHANGED PRN D/T INCONTIENCE; PATIENT STATES HE HAS BEEN INCONTINENT FOR A LONG TIME AND HAS BEEN W/C BOUND. ABLE TO HEAT UP MEALS IN THE [place] (AT HOME); PCG MAKES PATIENT MEALS AND SHE HELPS HIM WITH PERSONAL CARE (COMES BY EVERY AM) AND CHECKS FASTING CBG DAILY FOR PATIENT. PATIENTS SON LIVES WITH PATIENT AND IS ALSO HELPFUL; TAKES HIM TO HIS APPTS., ETC.
--- NOTE | 2018-12-22 20:48 | NUR ---
ASSUMED CARE OF PATIENT AT APPROXIMATELY 1900 FROM ALLIE Arellano RN. PATIENT ALERT AND ORIENTED AT TIMES; OPENS EYES TO VERBAL STIMULUS; SLEEPS IN BETWEEN CARE ROUNDING AND Q2H TURNS. PATIENT LAYS IN CURLED UP POSISTION; FEEDER; MEDS WHOLE IN APPLESAUCE. PATIENT ABLE TO STATE YEAR, AND NAME; UANBLE TO STATE LOCATION. PATIENT COMPLAINED OF PAIN 7/10 IN LOWER BACK; MEDICATED PER EMAR. PATIENT REPORTS N/T IN FEET THAT HIS CHRONIC. PATIENT DENIES NAUSEA AND DIZZINESS. PATIENT SB/NSR ON HEART MONITOR; OXYGEN SATURATION ABOVE 90% ON 3-4LPM VIA NC; REPORTED PATIENT WEARS NC AT BASELINE AND IS W/C BOUND AND INCONTINENT. DIALYSIS PORT R CHEST WNL; BRUISING NOTED; DAYSHIFT RN STATED NORMAL; ARMBOARD IN PLACE TO LEFT ARM FROM PREVIOUS ACCESS; SOFT. PCU STATUS; CBG AC/HS. PIV S/L. PATIENT CURRENTLY SLEEPING IN BED; CALL LIGHT IN REACH; BED IN LOWEST POSISTION; BED ALARM ON; WILL CONTINUE TO MONITOR AND ASSESS UNTIL END OF SHIFT.
[2018-12-23 04:06] LABS: Hematocrit 28.1 % (37.0-53.0); Hemoglobin 8.9 g/dL (13.5-17.5)
[2018-12-23 04:25] LABS: Magnesium, Blood 2.2 mg/dL (1.6-2.4)
[2018-12-23 04:26] LABS: Albumin, Blood 2.3 g/dL (3.4-5.0); Anion Gap 9 mmol/L (6-16); Blood Urea Nitrogen 56 mg/dL (8-24); Bun/Creatinine Ratio 12.7 (12.0-20.0); CO2, Blood 31 mmol/L (21-32); Calcium, Blood 7.7 mg/dL (8.5-10.1); Chloride, Blood 92 mmol/L (98-108); Creatinine, Blood 4.42 mg/dL (0.60-1.20); Glomerular Filtration Rate 14 (60-); Glucose, Blood 353 mg/dL (70-99); Phosphorus, Blood 6.3 mg/dL (2.5-4.9); Potassium, Blood 4.9 mmol/L (3.5-5.5); Sodium, Blood 132 mmol/L (136-145)
--- NOTE | 2018-12-23 06:31 | NUR ---
PATIENT SLEPT APPROXIMATELY 11 HOURS LAST NIGHT; CBG OVER 200 ALL NIGHT. PATIENT SNACKED T/O NIGHT. VSS. DIALYSIS TODAY W/ 1UNIT RBC. NO FUTHER COMPLAINTS OF PAIN. WILL CONTINUE TO MONITOR AND ASSESS UNTIL END OF SHIFT.
--- NOTE | 2018-12-23 07:30 | NUR ---
ASSUMED CARE OF PATIENT; SEE ASSESSMENT CHARTING FOR DETAILS. PATIENT SLEEPING BUT ROUSES TO VERBAL STIMULI; DRIFTS OFF TO SLEEP WHEN NOT DISTURBED. LUNGS CLEAR; DECREASED IN BASES; OXYGEN AT 2L/MIN VIA NC (SAME DOSE USED AT HOME). SL. CONFUSED WHEN FIRST AWAKENED; ASKED RN WHERE HE IS. REORIENTED AND CBG CHECK DONE; READING 351; COVERAGE GIVEN. BREAKFAST TOLERATED WELL BUT REQUIRED RN TO FEED PATIENT; NEEDING TO BE ROUSED ETC; NO S/SX' OF ASPIRATION. HEEL PROTECTORS TO BILAT FEET BUT PATIENT MANAGES TO KICK THEM OFF (MOVES LE'S AND BODY WHEN RESTLESS). MONITOR REMAINS ATRIAL FIB WITH RATE STABLE; VSS AND NO ACUTE PAIN. L UPPER ARM (MEDIAL BRACHIAL) BRUISED BUT NO BLEEDING AND TISSUES REMAINS SOFT; ARMBOARD IN PLACE.
--- NOTE | 2018-12-23 08:40 | NUR ---
DR. PEREZ (HOSPITALIST) ROUNDING; CHANGED PATIENT TO MEDICAL FLOOR STATUS, WITH TELEMETRY. CHANGED PAIN MED. FROM PO TO DILAUDID IVT; CONERNED ORAL PAIN MED. IS NOT PROCESSING OUT QUICKLY D/T RENAL FAILURE AND FEELS IV MED WILL CAUSE LESS DROWSINESS AND SLEEPINESS.
--- NOTE | 2018-12-23 11:45 | NUR ---
CBG READING UP TO 398; COVERAGE GIVEN PER PROTOCOLS.
--- NOTE | 2018-12-23 13:30 | NUR ---
ATTEMPTING TO ROUSE PATIENT BUT SLEEPIER THAN IN AM; LUNCH HELD D/T CONCERN FOR ASPIRATION.
--- NOTE | 2018-12-23 15:36 | NUR ---
Spiritual care visit conducted. Patient was lying in bed and asleep when I entered patient's room. Patient minimally responded to the sound of his name. I provided companionship and prayer. I told patient I would bring my guitar in and play for him next day and patient nodded affirmingly (I played guitar for patient on previous visits and he appreciated it). Patient quickly fell back to sleep.
--- NOTE | 2018-12-23 15:45 | NUR ---
PATIENT TO TRANSFER TO MEDICAL FLOOR, ROOM 309.
--- NOTE | 2018-12-23 16:00 | NUR ---
REPORT TO NÉSTOR VALLECILLO.
--- NOTE | 2018-12-23 16:05 | NUR ---
TRANSFERRED TO MEDICAL FLOOR, ROOM 309, VIA BED. BELONGINGS, CHART AND MEDS. ACCOMPANYING PATIENT. HEALTH AND WELLNESS INSTRUCTOR 2, NAIN Hendrix, TRANSFERRED PATIENT WITHOUT INCIDENT. 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
--- NOTE | 2018-12-23 16:28 | NUR ---
PT ARRIVED TO UNIT AT 1610 VIA HOSPITAL BED. VITALS TAKEN. ATTENDS PUT ON. PT IS LETARGIC BUT CAN ANSWER QUESTIONS. REPORT RECIEVED FROM ICU NURSE. PT GIVEN SOME WATER. DELON CONTINUE TO MONITOR.
--- NOTE | 2018-12-23 18:23 | NUR ---
PT ATE DINNER WITH THE ASSISTANCE OF THE JDE DEVELOPER. THE PT IS MISSING TEETH AND CANNOT FEED HIMSELF. HE NEEDS FEEDING ASSISTANCE AND PATIENCE DOING SO. PATIENT IS SLEEPING IN BED NOW. WILL CONTINUE TO MONITOR.
[2018-12-24 04:41] LABS: Hematocrit 30.2 % (37.0-53.0); Hemoglobin 9.5 g/dL (13.5-17.5)
--- NOTE | 2018-12-24 04:50 | NUR ---
SHIFT SUMMARY PT MOANS OUT IN PAIN AND REQUESTED SOMETHING FOR PAIN EARLY ON IN SHIFT, DILAUDID 0.5 MG GIVEN IVP PER ORDER. PT HAS NOT VOIDED ALL SHIFT, BLADDER SCAN SHOWS 464 ML'S URINE IN BLADDER. PT NOW C/O ABDOMINAL DISCOMFORT. HOSPITALIST CALLED AND ORDER RECEIVED FOR STRAIGHT CATH. CATHED 600ML'S YELLOW URINE AT END OF URINE DRAINAGE PUS NOTED. BLADDER SCAN TO BE REPEATED AT 11 AM. PT STILL WITH C/O'S ABDOMINAL PAIN 07/14, ALSO KIDNEY PAIN. DILAUDID 0.5 MG GIVEN. WILL CONTINUE TO MONITOR.
[2018-12-24 05:05] LABS: Magnesium, Blood 2.3 mg/dL (1.6-2.4)
[2018-12-24 05:06] LABS: Albumin, Blood 2.3 g/dL (3.4-5.0); Anion Gap 9 mmol/L (6-16); Blood Urea Nitrogen 68 mg/dL (8-24); Bun/Creatinine Ratio 12.8 (12.0-20.0); CO2, Blood 30 mmol/L (21-32); Calcium, Blood 8.3 mg/dL (8.5-10.1); Chloride, Blood 97 mmol/L (98-108); Creatinine, Blood 5.33 mg/dL (0.60-1.20); Glomerular Filtration Rate 11 (60-); Glucose, Blood 141 mg/dL (70-99); Phosphorus, Blood 5.7 mg/dL (2.5-4.9); Potassium, Blood 4.4 mmol/L (3.5-5.5); Sodium, Blood 136 mmol/L (136-145)
--- NOTE | 2018-12-24 12:24 | NUR ---
PT BLOOD SUGAR WAS 395. NURSE SPOKE WITH DIALYSIS NURSE WHO ASKED NURSE TO HOLD LUNCH TRAY AND INSULIN AT LUNCH FOR DIALYSIS. PT TRANSPORTED TO DIALYSIS AT 12:05PM. NURSE TO ASSESS CBG AFTER DIALYSIS. DR RANDALL NOTIFIED OF CBG OF 395 AND HE STATED THAT NURSE COULD HOLD INSULIN FOR LUNCH AT THIS TIME.
--- NOTE | 2018-12-24 17:05 | NUR ---
DISCHARGE SUMMARY PT [facility] TO [facility]. PT LEFT ROOM AT 1655 WITH ESCORT AND TIPPLE MECHANIC PRESENT. PT ON 2L VIA NC. IV DC'D AND BELONGINGS RETURNED. REPORT ATTEMPTED AT 1657 THOUGH NURSE WAS TRANSFERRED AND THEN PLACED ON HOLD FOR ABOUT 10 MINUTES BEFORE NURSE HUNG UP. SONRIVKA NOTIFIED OF PT TRANSFER.
[2018-12-24] MEDS ORDERED: CARV25 PO (17:38)
[2018-12-24] MEDS ORDERED: LOSA50 PO (17:39)
--- NOTE | 2018-12-24 19:28 | NUR ---
PRESCRIPTION FOR ATIVAN FAXED TO [facility] AT ABOUT 1830, SEE CHART
== END 2018-12-24 15:50 | DRG 674 ==
LOC: MHTC 06:37 → ICUW 14:37 → MEDS 15:19 → MHTC 15:19 → ICUW 12-21 08:00 → MEDS 12-23 16:05
PROVIDERS: Internal Medicine Nephrology; Radiology Diagnostic Radiology; ADMIT Hospitalist
PROC: 0JH63XZ Insertion of Tunneled Vascular Access Device into Chest Subcutaneous Tissue and Fascia, Percutaneous Approach (ICD-10-PCS; principal; 2018-12-20)
PROC: 5A1D70Z Performance of Urinary Filtration, Intermittent, Less than 6 Hours Per Day (ICD-10-PCS; 2018-12-20)
PROC: 5A1D70Z Performance of Urinary Filtration, Intermittent, Less than 6 Hours Per Day (ICD-10-PCS; 2018-12-21)
PROC: 5A1D70Z Performance of Urinary Filtration, Intermittent, Less than 6 Hours Per Day (ICD-10-PCS; 2018-12-22)
PROC: 30233N1 Transfusion of Nonautologous Red Blood Cells into Peripheral Vein, Percutaneous Approach (ICD-10-PCS; 2018-12-23)
DX: N17.9 Acute kidney failure, unspecified (principal); I12.0 Hypertensive chronic kidney disease with stage 5 chronic kidney disease or end stage renal disease; E87.1 Hypo-osmolality and hyponatremia; N18.6 End stage renal disease; E11.22 Type 2 diabetes mellitus with diabetic chronic kidney disease; E11.51 Type 2 diabetes mellitus with diabetic peripheral angiopathy without gangrene; Z99.2 Dependence on renal dialysis; Z79.4 Long term (current) use of insulin; J84.10 Pulmonary fibrosis, unspecified; F32.9 Major depressive disorder, single episode, unspecified; Z85.51 Personal history of malignant neoplasm of bladder; D63.1 Anemia in chronic kidney disease; F17.210 Nicotine dependence, cigarettes, uncomplicated; E78.5 Hyperlipidemia, unspecified; E88.09 Other disorders of plasma-protein metabolism, not elsewhere classified; Z99.81 Dependence on supplemental oxygen; R63.0 Anorexia; I99.8 Other disorder of circulatory system
CPT/HCPCS: 36415; 36416; 36558; 37221; 37225; 51702; 75625; 75716; 75774; 76937; 80048; 80053; 80069; 80074; 81001; 82947; 83735; 85014; 85018; 85025; 85027; 85347; 85610; 85730; 86317; 86850; 86900; 86901; 86923; 87077; 87086; 87186; 97110; 97161; 97530; 99152; 99153; A9270-GY; C1714; C1750; C1769; C1876; C1884; C1887; C1894; C2623; J0360; J0881; J1170; J1610; J1644; J1650; J2250; J2405; J2720; J3010; J7030; J7040; J7042; P9016; Q9967

== ENCOUNTER → 2019-01-19 | Outpatient (CLI) | payer OTHER ==
[~2019-01-19] MED LIST changes: +ALBU2.5V5 NEB; +Acidophilus La100 GM PO; +CARV25 PO; +CEFD300 PO; +FAMO20 PO; +LOSA50 PO; +Novolog100 UNIT/2; +OXYC5 PO; +POTA10T PO; +Tamiflu30 MG PO; +[UNRECOGNIZED DRUG - REMARK]
[2019-01-19 11:56] LABS: Hematocrit 31.3 % (37.0-53.0); Hemoglobin 9.7 g/dL (13.5-17.5); Mean Corpuscular HGB 30.9 pg (26.0-34.0); Mean Corpuscular Volume 100 fL (80-100); Mean Platelet Volume 10.5 fL (9.1-12.4); Platelet Count 413 K/mm3 (150-400); RDW Coefficient Variation 15.9 % (11.7-14.2); RDW Standard Deviation 56.8 fL (35.1-46.3); Red Blood Cell Count 3.14 M/mm3 (4.30-5.90); White Blood Cell Count 13.71 K/mm3 (4.00-11.30)
[2019-01-19 12:22] LABS: Bun/Creatinine Ratio 14.7 (12.0-20.0); Calcium, Blood 8.7 mg/dL (8.5-10.1); Creatinine, Blood 4.89 mg/dL (0.60-1.20); Potassium, Blood 5.1 mmol/L (3.5-5.5)
== END | disposition home or self-care (01) ==
LOC: EDSTATUS 09:38 → LAB UVN 11:48
DX: D72.829 Elevated white blood cell count, unspecified (principal)
CPT/HCPCS: 80048; 85027

== ENCOUNTER 2019-01-21 11:04 | Emergency (ER) | payer OTHER ==
[~2019-01-21] VITALS: Ht 167.6 cm; Wt 72.6 kg
[~2019-01-21 11:04] MED LIST changes: -ALBU2.5V5 NEB
[2019-01-21] MEDS ORDERED: ALBU2.5V5 NEB (11:30)
[2019-01-21 11:42] LABS: PO2 Arterial 95.7 mmHg (80-100); pH Blood Arterial 7.44 (7.35-7.45)
[2019-01-21 12:00] LABS: BASOPHILS ABSOLUTE AUTO 0.08 K/mm3 (0.00-0.23); BASOPHILS PERCENT AUTO 1 % (0-2); EOSINOPHILS ABSOLUTE AUTO 0.28 K/mm3 (0.00-0.68); EOSINOPHILS PERCENT AUTO 2 % (0-6); Hematocrit 32.9 % (37.0-53.0); Hemoglobin 10.3 g/dL (13.5-17.5); IMMATURE GRAN ABSOLUTE AUTO 0.09 K/mm3 (0.00-0.10); IMMATURE GRAN PERCENT AUTO 1 % (0-1); LYMPHOCYTES ABSOLUTE AUTO 2.64 K/mm3 (0.84-5.20); LYMPHOCYTES PERCENT AUTO 18 % (21-46); MONOCYTES ABSOLUTE AUTO 1.02 K/mm3 (0.16-1.47); MONOCYTES PERCENT AUTO 7 % (4-13); Mean Corpuscular HGB 31.2 pg (26.0-34.0); Mean Corpuscular HGB Conc 31.3 g/dL (31.5-36.5); Mean Corpuscular Volume 100 fL (80-100); Mean Platelet Volume 9.5 fL (9.1-12.4); NEUTROPHILS ABSOLUTE AUTO 10.61 K/mm3 (1.96-9.15); NEUTROPHILS PERCENT AUTO 72 % (41-73); Platelet Count 422 K/mm3 (150-400); RDW Coefficient Variation 16.2 % (11.7-14.2); White Blood Cell Count 14.72 K/mm3 (4.00-11.30)
[2019-01-21 12:13] LABS: Alanine Aminotransfer (ALT/SGP 11 U/L (12-78); Albumin/Globulin Ratio 0.7 (0.8-1.8); Alk Phos 67 U/L (50-136); Anion Gap 5 mmol/L (6-16); Aspartate Aminotrans (AST/SGOT 13 U/L (12-37); Bilirubin, Total 0.3 mg/dL (0.1-1.0); Blood Urea Nitrogen 59 mg/dL (8-24); Bun/Creatinine Ratio 12.9 (12.0-20.0); CO2, Blood 33 mmol/L (21-32); Chloride, Blood 98 mmol/L (98-108); Creatinine, Blood 4.57 mg/dL (0.60-1.20); Globulin, Blood 4.3 g/dL (2.2-4.0); Glomerular Filtration Rate 13 (60-); Glucose, Blood 135 mg/dL (70-99); Potassium, Blood 4.9 mmol/L (3.5-5.5); Sodium, Blood 136 mmol/L (136-145); Total Protein, Blood 7.3 g/dL (6.4-8.2); Troponin I <0.015 ng/mL (0.000-0.040)
== END 2019-01-21 13:24 | disposition home or self-care (01) ==
LOC: ER 11:04
PROVIDERS: Emergency Medicine
DX: T50.901A Poisoning by unspecified drugs, medicaments and biological substances, accidental (unintentional), initial encounter (principal); Z88.8 Allergy status to other drugs, medicaments and biological substances; Z88.6 Allergy status to analgesic agent; Z79.899 Other long term (current) drug therapy; Z79.82 Long term (current) use of aspirin; Z79.4 Long term (current) use of insulin; E11.9 Type 2 diabetes mellitus without complications; I10 Essential (primary) hypertension; Z87.891 Personal history of nicotine dependence
CPT/HCPCS: 36415; 36600; 70450; 80053; 82803; 84484; 85025; 93005; 93010; 96374; 96375; 99285-25; J2310; J2405

== ENCOUNTER 2019-02-13 07:58 | Inpatient (IN) | payer OTHER ==
[~2019-02-13] VITALS: Ht 167.6 cm; Wt 70.4 kg
[~2019-02-13 07:58] MED LIST changes: +ALBU2.5V5 NEB; -ASPI81EC PO; +CEPH500 PO; -CILO100 PO; -CLON.3; +CLON.3 PO; +Cilostazol50 MG PO; +Mirtazapine7.5 MG PO; -Novolog100 UNIT/2; +Novolog100 UNIT/2 SC; +TAMS.4ER PO
[2019-02-13] MEDS ORDERED: BISA10S PR (08:28)
[2019-02-13 08:35] LABS: Base Excess Venous 4.6 mmol/L; Bicarbonate Venous 27.9 mmol/L (24.0-30.0); PCO2 Venous 45.8 mmHg (38-42); PO2 Venous 77.4 mmHg (38-42); pH Blood Venous 7.41 (7.34-7.37)
[2019-02-13] MEDS ORDERED: VITAMIN D32000 UNI1 PO (08:36)
[2019-02-13 08:51] LABS: BASOPHILS ABSOLUTE AUTO 0.05 K/mm3 (0.00-0.23); BASOPHILS PERCENT AUTO 1 % (0-2); EOSINOPHILS ABSOLUTE AUTO 0.28 K/mm3 (0.00-0.68); EOSINOPHILS PERCENT AUTO 3 % (0-6); Hematocrit 34.3 % (37.0-53.0); Hemoglobin 10.7 g/dL (13.5-17.5); IMMATURE GRAN ABSOLUTE AUTO 0.03 K/mm3 (0.00-0.10); IMMATURE GRAN PERCENT AUTO 0 % (0-1); LYMPHOCYTES ABSOLUTE AUTO 2.36 K/mm3 (0.84-5.20); LYMPHOCYTES PERCENT AUTO 28 % (21-46); MONOCYTES ABSOLUTE AUTO 0.33 K/mm3 (0.16-1.47); MONOCYTES PERCENT AUTO 4 % (4-13); Mean Corpuscular HGB 30.5 pg (26.0-34.0); Mean Corpuscular HGB Conc 31.2 g/dL (31.5-36.5); Mean Corpuscular Volume 98 fL (80-100); Mean Platelet Volume 10.1 fL (9.1-12.4); NEUTROPHILS ABSOLUTE AUTO 5.49 K/mm3 (1.96-9.15); NEUTROPHILS PERCENT AUTO 64 % (41-73); Platelet Count 371 K/mm3 (150-400); RDW Coefficient Variation 14.9 % (11.7-14.2); RDW Standard Deviation 53.5 fL (35.1-46.3); Red Blood Cell Count 3.51 M/mm3 (4.30-5.90); White Blood Cell Count 8.54 K/mm3 (4.00-11.30)
[2019-02-13 09:06] LABS: Magnesium, Blood 2.5 mg/dL (1.6-2.4); Phosphorus, Blood 6.2 mg/dL (2.5-4.9)
[2019-02-13 09:09] LABS: Ethanol (Alcohol), Blood, Med <3 mg/dL
[2019-02-13 09:11] LABS: International Normalized Ratio 1.01; Prothrombin Time Results 10.7 Sec (9.7-11.5)
[2019-02-13 09:14] LABS: Alanine Aminotransfer (ALT/SGP 16 U/L (12-78); Albumin, Blood 2.5 g/dL (3.4-5.0); Albumin/Globulin Ratio 0.5 (0.8-1.8); Alk Phos 69 U/L (50-136); Anion Gap 8 mmol/L (6-16); Aspartate Aminotrans (AST/SGOT 15 U/L (12-37); Beta-hydroxybutyrate 0.8 mg/dL (0.2-2.8); Bilirubin, Total 0.3 mg/dL (0.1-1.0); Blood Urea Nitrogen 54 mg/dL (8-24); Bun/Creatinine Ratio 10.3 (12.0-20.0); CO2, Blood 29 mmol/L (21-32); Calcium, Blood 8.1 mg/dL (8.5-10.1); Chloride, Blood 94 mmol/L (98-108); Creatinine, Blood 5.23 mg/dL (0.60-1.20); Glomerular Filtration Rate 11 (60-); Glucose, Blood 399 mg/dL (70-99); Potassium, Blood 4.7 mmol/L (3.5-5.5); Sodium, Blood 131 mmol/L (136-145); Total Protein, Blood 7.5 g/dL (6.4-8.2)
[2019-02-13] MEDS ORDERED: Novolog100 UNIT/2 SC (09:14)
[2019-02-13] MEDS ORDERED: Glucagon Emergen1 MG IM (09:15)
[2019-02-13 09:38] LABS: Source, Urine Clean Catch
[2019-02-13 09:46] LABS: Bilirubin, Urine Neg (Neg); Blood, Urine 3+ (Neg); Color, Urine Yellow (P-Yellow); Glucose Qualitative, Urine 3+ (Neg); Ketones, Urine Neg (Neg); Leukocyte Esterase, Urine 3+ (Neg); Nitrite, Urine Neg (Neg); Protein, Urine 3+ (Neg); Urobilinogen, Urine NORM (Normal)
[2019-02-13 10:03] LABS: Appearance, Urine Turbid (Clear); White Blood Cells, Urine TNTC /hpf (0-5)
[2019-02-13 10:04] LABS: Bacteria Many /hpf; Squamous Epithelial Cells Not Seen /hpf (Few)
[2019-02-13] MEDS ORDERED: SACC250C PO (12:50)
[2019-02-13] MEDS ORDERED: LO-DOSE ASPIRIN81 MG PO (12:51)
--- NOTE | 2019-02-13 16:53 | NUR ---
ATTEMPTED TO CALL IN PROVIDER CONSULT FOR DR ROMERO, LEFT MESSAGE OF VOICEMAIL. NOTIFIED DR VILLAFANA. PT POLST AND DOCUMENTATION FROM [facility] STATE PT FULL CODE AND ADMIT ORDER ARE DNR. WHEN ASKED PT RESPONSE IS YEAH, IM A DNR AND THEN STATES HE WANTS US TO "AT LEAST TRY TO SAVE ME". NOTIFIED DR VILLAFANA, NO NEW ORDERS, DR VILLAFANA TO DISCUSS WITH PATIENT TOMORROW. CLARIFIED BLOOD GLUCOSE ORDERS AND O2 SATURATIONS WITH DR VILLAFANA, NEW ORDERS ENTERED. WILL CONTINUE TO MONITOR.
--- NOTE | 2019-02-13 17:06 | NUR ---
CONSULT TO DR ROMERO, NEW ORDERS FOR LABS ENTERED.
--- NOTE | 2019-02-13 19:55 | NUR ---
ADMIT NOTE/SHIFT SUMMARY RECEIVED REPORT FROM ESTER HERNANDEZ RN IN ED. PT TO ROOM VIA [place], 4 PERSON ASSIT WITH SLIDER SHEET. PT ORIENTED TO ROOM AND CALL LIGHT. EDUCATED ON FALL RISK AND USE OF CALL LIGHT PRIOR TO GETTING UP. PT A&Ox2. CONFUSED. [place]. COOPERATIIVE WITH CARE. PT RESTING IN BED DURING SHIFT, REPOSITIION FOR COMFORT. PT REPORTS PAIN IN BLE AND TORSO, MEDICATED X1 WITH OXYCODONE WITH POSITIVE RESULTS. PT ON RA AT BASELINE CAME TO ROOM ON 2L O2, O2 SATUATION 84-87% INCREASED TO 4L 02, TITRATED BACK DOWN TO 2L THIS EVENING. LS DIM T/O. SOB WITH EXERITON. PT DENIES N/V. VARELA PLACED IN ED, PATENT AND DRAINING. PT RECEIVING IV ANTIBITOICS. DR ROMERO CONSULTED. COCCYX IS RED, BLANCABLE, PICTURE IN CHART. PRESSURE ULCERS TO BOTH HEELS AND RIGHT GREAT TOE, HEEL PROTECTOR IN PLACE AND BLE FLOATED, PICTURES IN CHART. BP TRENDING DOWN, OTHER VSS. NO OTHER ACUTE CHANGES NOTED DURING SHIFT. REPORT GIVEN TO ONCOMING RN
[2019-02-14 04:37] LABS: PCO2 Arterial 48.4 mmHg (35-45); PO2 Arterial 95.1 mmHg (80-100); pH Blood Arterial 7.41 (7.35-7.45)
[2019-02-14 04:43] LABS: BASOPHILS ABSOLUTE AUTO 0.05 K/mm3 (0.00-0.23); BASOPHILS PERCENT AUTO 1 % (0-2); EOSINOPHILS PERCENT AUTO 5 % (0-6); Hematocrit 34.5 % (37.0-53.0); Hemoglobin 10.8 g/dL (13.5-17.5); IMMATURE GRAN ABSOLUTE AUTO 0.02 K/mm3 (0.00-0.10); IMMATURE GRAN PERCENT AUTO 0 % (0-1); LYMPHOCYTES ABSOLUTE AUTO 1.71 K/mm3 (0.84-5.20); LYMPHOCYTES PERCENT AUTO 18 % (21-46); MONOCYTES ABSOLUTE AUTO 0.59 K/mm3 (0.16-1.47); MONOCYTES PERCENT AUTO 6 % (4-13); Mean Corpuscular HGB 30.6 pg (26.0-34.0); Mean Corpuscular HGB Conc 31.3 g/dL (31.5-36.5); Mean Corpuscular Volume 98 fL (80-100); Mean Platelet Volume 9.7 fL (9.1-12.4); NEUTROPHILS ABSOLUTE AUTO 6.83 K/mm3 (1.96-9.15); NEUTROPHILS PERCENT AUTO 70 % (41-73); Platelet Count 430 K/mm3 (150-400); RDW Coefficient Variation 14.6 % (11.7-14.2); RDW Standard Deviation 52.7 fL (35.1-46.3); Red Blood Cell Count 3.53 M/mm3 (4.30-5.90)
[2019-02-14 05:04] LABS: Albumin, Blood 2.6 g/dL (3.4-5.0); Anion Gap 9 mmol/L (6-16); Blood Urea Nitrogen 68 mg/dL (8-24); Bun/Creatinine Ratio 11.2 (12.0-20.0); CO2, Blood 29 mmol/L (21-32); Calcium, Blood 8.5 mg/dL (8.5-10.1); Chloride, Blood 99 mmol/L (98-108); Creatinine, Blood 6.07 mg/dL (0.60-1.20); Glomerular Filtration Rate 9 (60-); Glucose, Blood 151 mg/dL (70-99); Magnesium, Blood 2.6 mg/dL (1.6-2.4); Potassium, Blood 5.2 mmol/L (3.5-5.5); Sodium, Blood 137 mmol/L (136-145)
--- NOTE | 2019-02-14 06:13 | NUR ---
RAPID RESPONSE HIGHWAY LANDSCAPE ARCHITECT ENTERED PT'S ROOM AT APPROX 0415 TO TAKE PT'S VITAL SIGNS AND WAS UNABLE TO WAKE PT UP. THIS RN WAS CALLED AND ENTERED ROOM. PT WOULD NOT WAKE EVEN TO STERNAL RUB AND PAINFUL STIMULI. PUPILS WERE SLUGGISH. RAPID RESPONSE WAS CALLED. VITAL SIGNS AT THE TIME WERE BP 152/55, RESPIRATIONS 10, HEART RATE 57, AND O2 SATS 99% ON 2 L O2. BLOOD SUGAR CHECKED AND MACHINE READ "LO". D50 PULLED AND ENTIRE AMP GIVEN. BLOOD SUGAR IMPROVED TO 207. PT STILL UNRESPONSIVE. SONKADIE CALLED TO CONFIRM PT'S CODE STATUS. PT HAD CURRENT DNR ORDER BUT HAD POLST IN THE CHART THAT STATED FULL CODE. PT'S SON IS LISTED TO MAKE DECISIONS FOR PT WHEN PT IS UNABLE. PT'S SON CONFIRMED DNR/DNI STATUS. DR. HOWARD CALLED, NEW ORDER FOR NARCAN 0.4 MG IV NOW. PT HAD ONE DOSE OF 5 MG ROXICODONE EARLY IN THE SHIFT. NARCAN GIVEN, PT REMAINED UNRESPONSIVE. DR. HOWARD NOTIFIED AGAIN. NEW ORDER FOR STAT HEAD CT. PT TAKEN DOWN FOR CT. WHILE DOWN AT CT PT BECAME RESPONSIVE, WOULD OPEN EYES BUT WOULD ONLY MOAN, WOULD NOT SPEAK. RETURNED TO PT'S ROOM FROM CT AND RECHECKED PT'S BLOOD SUGAR AGAIN. IT HAD GONE DOWN TO 108. DR. HOWARD TO ROOM TO SEE PT. WANTED PT'S CBG CHECKED Q 30 MINUTES UNTIL STABLE. THIS IS MORE FREQUENTLY THAN WE DO ON MEDICAL FLOOR SO PT GOT ORDER TO TRANSFER TO ICU. PT'S BLOOD GLUCOSE CHECKED 30 MINUTES AFTER AND HAD GONE DOWN TO 72. REPORT CALLED TO RHONDA PALM IN ICU AND PT TRANSFERED TO ICU 6. UPON LEAVING PT WAS MORE AWAKE, ANSWERING SOME YES OR NO QUESTIONS. CALL MADE TO DR. ROMERO TO NOTIFY OF EVENT. DR. ROMERO ORDERED D10 AT 50 ML/HR. ORDER PUT IN AND BAG SENT DOWN TO ICU WITH PT.
--- NOTE | 2019-02-14 06:31 | NUR ---
ASSUMPTION OF CARE: Pt arrived to ICU at 0615, alert to self, vital signs appear to be stable, respirations are rapid and shallow, CBG 62. 20g IV established to LFA, D10 to be initiated per Dr. Mojica.
--- NOTE | 2019-02-14 08:05 | NUR ---
ASSUMED CARE PT. DROWSY, AWAKENS TO VERBAL STIMULI HOWEVER NO ORIENTED TO LOCATION OR EVENT. PT. MOANING AND TACHYPNEIC. PT REPORTS PAIN "EVERYWHERE", PT MED WITH FENTANYL PER DR. NICHOLS. PT CURRENTLY ON 3LNC. PT. PROVIDED WITH WARM BLANKETS THIS AM PER REQUEST. PT. SON AT BEDSIDE UPDATED ON PLAN OF CARE. BG REMAINS 65 THIS AM ON 10% DEXTROSE GTT WILL CONTINUE TO DO HOURLY CHECKS UNTIL STABLE. PT. NPO FOR MEDS AND FOOD UNTIL MORE ALERT PER DR. VILLAFANA. PT. HAS VARELA IN PLACE DRAINING TO GRAVITY. VSS AT THIS TIME. CALL LIGHT IN REACH.
--- NOTE | 2019-02-14 12:00 | NUR ---
Spiritual care visit conducted. Patient is resting but easily awakens to the sound of his name. Patient struggles to converse and so I simply asked patient if I could pray for him and he nods affirmingly. I provided prayer and patient thanked me. I also asked patient if playing guitar would be of comfort to him and patient said "yes." I told patient I miroslava come by at some point and play soft therapeutic guitar music for him. I will continue to remain available to patient.
--- NOTE | 2019-02-14 16:05 | NUR ---
DIALYSIS AT BEDSIDE PT. MORE ALERT AT THIS TIME. ANSWERING QUESTIONS, PT REPORTS PAIN TO SPINE AND HIPS, ASSISTED WITH REPOSITIONING AND HOME PAIN MEDICATION REGIMEN RESTARTED PER DR. VILLAFANA. PT. PROVIDED WITH SNACK AFTER REPORTING HE WAS "STARVING", TOLERATED SNACK WELL. DEXTROSE GTT STOPPED PER DR. VILLAFANA. BG REMAINS STABLE. VSS AT THIS TIME
--- NOTE | 2019-02-14 17:48 | NUR ---
SHIFT SUMMARY PT. MORE ALERT T/O SHIFT. NOW SITTING UP IN BED FEEDING SELF. PT. GIVEN BED BATH TODAY AND ABLE TO ASSIST WITH BATH. PT. BG CHECKED FREQUENTLY T/O SHIFT. MED WITH INSULIN PRIOR TO DINNER PER DR. NICHOLS. DIALYSIS DONE TODAY. PT. TOLERATED WELL. VSS AT THIS TIME. CALL LIGHT IN REACH. REPORT TO ANTONIETTA PALM.
--- NOTE | 2019-02-14 20:00 | NUR ---
CARE ASSUMED REPORT RECEIVED, CARE ASSUMED FROM NÉSTOR MERLOS AT 1900. ON NURSE ROUNDING AT 1900, PT ABLE TO STATE NAME AND LOCATION BUT UNSURE OF YEAR. PT MUMBLING, TALKING ABOUT VARIOUS UNRELATED TOPICS. DIFFICULT TO UNDERSTAND. LEFT WITH CALL LIGHT IN REACH AND BED ALARM IN PLACE, AGREES TO CALL FOR NEEDS. WITHIN 15 MINUTES OF NURSE ROUNDING, PT REMOVED ALL VITALS MONITORING CORDS AND SWINGING CORDS ABOVE HEAD. NOTIFIED BY OFFGOING NURSE THAT PT STATES, "OH I AM ABOUT TO START YELLING AT ABOUT 10 O'CLOCK." RT PLACED NEBULIZER TREATMENT, WHICH PT PROCEEDED TO PLACE ON TOP OF HEAD. PT REDIRECTIBLE VERBALLY. WILL CONTINUE TO CLOSELY MONITOR, BED IN LOWEST POSITION, ALARM IN PLACE, AND CALL LIGHT IN REACH.
--- NOTE | 2019-02-14 21:00 | NUR ---
AGITATION ANOTHER RN RESPONDED TO PT PULLING OF HEART MONITOR, O2 PROBE AND BP CUFF. AUDIBLE FROM HALLWAY, PT BEGAN CUSSING AND YELLING AT NURSE. UPON ENTERING ROOM, PT CONTINUES TO YELL AT STAFF, ATTEMPTS TO GET OUT OF BED, AND THROWS CALL LIGHT. ABLE TO CALM PT SLIGHTLY WITH 1:1 STAFF AT BEDSIDE. PT UPSET REGARDING FINANCES AND MONEY THAT APPARENTLY HAS BEEN STOLEN FROM CARE FACILITY. PT REPEATEDLY REQUESTS THAT WE CALL HIS SON BUT IS NOT MAKING ENOUGH SENSE TO PLACE COHERENT CONVERSATION HIMSELF. CALL PLACED TO PT'S SON, KADIE. KADIE CONFIRMS PT HAS PROBLEMS WITH CONFUSION, AND EXPLAINS NO FAMILY MEMBERS ARE SUCCESSFUL AT REDIRECTING. NOTIFIED DENIA ANDREW OF UPDATES. NEW ORDER FOR TRAZADONE. UPON ATTEMPTING TO ADMINISTER, PT ESCALATES AND REFUSES ORAL MEDS. UNABLE TO KEEP PATIENT CALM WITH 1:1 CARE. PT PUNCHING SIDE RAILS, YELLING AND CUSSING AUDIBLE THROUGHOUT UNIT, ATTEMPTING TO GET OUT OF BED, PULLING AT LINES/TUBES. UPDATED DENIA ANDREW. NEW ORDER FOR ATIVAN 1-2 MG. 2 DOSES OF 1 MG ATIVAN GIVEN. PT DROWSY, BUT CONTINUES TO TALK INCOHERENTLY ABOUT VARIOUS FRUSTRATIONS. WILL CONTINUE TO CLOSELY MONITOR.
--- NOTE | 2019-02-14 21:30 | NUR ---
DIRECTOR INPATIENT HEADACHE PROGRAM AFTER ATIVAN ADMIN, PT CALM AND AGREEABLE TO TAKE MEDS IN APPLESAUCE. DIRECTOR INPATIENT HEADACHE PROGRAM INIITIALLY WITH NO PROBLEMS. HOWEVER, MIDWAY THROUGH ADMINISTRATION PT BECAME AGITATED, SPITTING MEDS OUT AT NURSE, YELLING AND REFUSING FURTHER ORAL INTAKE. REAPPROACHED MULTIPLE TIMES. SEE EMAR FOR MEDS GIVEN VERSES NOT GIVEN.
--- NOTE | 2019-02-14 21:34 | NUR ---
RESTRAINTS UNABLE TO REDIRECT PT FROM SELF ENDANGERING BEHAVIOR. PT CONTINUOUSLY PULLING AT LINES/TUBES, ATTEMPTING TO GET OUT OF BED, THROWING VARIOUS ITEMS, ATTEMPTING TO HIT STAFF, PUNCHING AT SIDE RAILS, AND YELLING AUDIBLY THROUGHOUT HALLWAY. DENIA ANDREW NOTIFIED. RESTRAINTS PLACED. HALDOL ADMIN. SEE RESTRAINT APPLICATION ASSESSMENT.
--- NOTE | 2019-02-14 23:45 | NUR ---
AGITATION/BLOOD PRESSURE SPOKE WITH DENIA ANDREW REGARDING PT'S BLOOD PRESSURE AND CONTINUED AGITATION/RESTLESSNESS. NEW ORDER FOR HYDRALAZINE IF BLOOD PRESSURE REMAINS ELEVATED AFTER CLONIDINE ADMIN. PT ACCEPTING OF ORAL INTAKE AT THIS TIME, CLONIDINE ADMIN. AFTER ADMINISTRATION, PT BEGAN YELLING, PULLING AT RESTRAINTS, ATTEMPTING TO GET OUT OF BED. UNABLE TO VERBALLY REDIRECT. ATIVAN ADMIN.
--- NOTE | 2019-02-15 02:00 | NUR ---
BLOOD SUGAR SPOT CHECK BLOOD SUGAR REVEALED HYPOGLYCEMIA. PT CONTINUED TO BE AWAKE, AGITATED WITH NO CHANGES FROM PREVIOUS ASSESSMENTS. PT DRANK SOME APPLE JUICE BUT THEN BECAME AGITATED AND REFUSED. REPEAT CBG REVEALED LOWER BLOOD SUGAR. 1 AMP D50 GIVEN. BLOOD SUGARS IMPROVED. PER LEE, D5W 1/2 NS INITIATED.
[2019-02-15 03:44] LABS: Hematocrit 33.3 % (37.0-53.0); Hemoglobin 10.5 g/dL (13.5-17.5)
[2019-02-15 04:01] LABS: Albumin, Blood 2.5 g/dL (3.4-5.0); Anion Gap 8 mmol/L (6-16); Blood Urea Nitrogen 35 mg/dL (8-24); Bun/Creatinine Ratio 8.8 (12.0-20.0); CO2, Blood 30 mmol/L (21-32); Chloride, Blood 97 mmol/L (98-108); Glomerular Filtration Rate 15 (60-); Glucose, Blood 192 mg/dL (70-99); Magnesium, Blood 2.1 mg/dL (1.6-2.4); Potassium, Blood 4.3 mmol/L (3.5-5.5); Sodium, Blood 135 mmol/L (136-145)
[2019-02-15 04:03] LABS: Phosphorus, Blood 4.9 mg/dL (2.5-4.9)
--- NOTE | 2019-02-15 06:31 | NUR ---
DR. HEATHER ROMERO AT BEDSIDE FOR ASSESSMENT. D5 1/2 NS CHANGED TO D5 NS. OTHERWISE, NO NEW ORDERS.
--- NOTE | 2019-02-15 07:28 | NUR ---
REPORT TO NÉSTOR RIBEIRO TO ASSUME CARE
--- NOTE | 2019-02-15 07:29 | NUR ---
SUMMARY PT HAS CONTINUED TO REQUIRE MEDICATIONS AND RESTRAINTS FOR SAFETY, SEE RESTRAINT ASSESSMENTS. SINCE LAST ATIVAN DOSE, PT HAS SLEPT, AROUSING OCCASIONALLY BUT QUICKLY FALLING BACK TO SLEEP. BP IMPROVED NOW THAT PT IS RESTING. OTHERWISE, ASSESSMENTS UNCHANGED.
--- NOTE | 2019-02-15 11:28 | NUR ---
INITIAL VISIT TO PT IN ICU. Pt is somnolent and did not wake to verbal or tactile stimuli. Per RN and notes he has had periods of agitation when awake so I did not wake him. He appears to be comfortable at this time. I did not note any nonverbal indicators of pain or distress. Pt remains acutely ill. RN states son has expressed concerns re: d/c planning even though no dc timeframe known at this time. He was readmitted from NH and son unsure if NH/SNF can meet his needs after this stay. This infor was passed on to care management team. Updated POLST filled out based on pt and son's conversations with Dr on admission and again yesterday. After it is signed by I will get it scanned to medical records and the original placed on his chart. I will ask that the previous POLST, that is not in agreement with the patients current stated wishes, be removed from the records to prevent confusion in the future. I will also send a copy of the updated POLST to pt's PCP and the NH where he may return.
--- NOTE | 2019-02-15 16:44 | NUR ---
PT'S CBG AT 1640 WAS 80MG/DL, PER DR VILLAFANA, OKAY TO KEEP D5NS AT 50 ML/HR. ALSO INFORMED DR ISREAL HAS NOT HAD ANY ORAL MEDS TODAY AND SBP HAVE BEEN IN 180'S. BRODERICK ORDERED HYDRALYZINE PRN, SEE ORDERS.
--- NOTE | 2019-02-15 18:52 | NUR ---
PT A&O TO NAME ONLY, AGITATED, PULLING AT LINES AND TRYING TO GET OUT OF BED. [address] VILLAFANA STARTED PT ON SEROQUEL PO, SEE ORDERS. PT UNABLE TO TAKE ANY OTHER ORAL MEDS, TOO DROWSY, FAILED SWALLOW EVAL. HYDRALYZINE 10 MG GIVEN AT END OF SHIFT FOR SBP 202. NSR, HR 70'S. D5NS DECREASED FROM 75 ML/HR TO 50 ML/HR, LAST CBG 80, NOTIFIED DR VILLAFANA, NO NEW ORDERS. D/C'D VARELA PER ORDER TO PREVENT UTI, BLADDER SCANNED 335 ML @ 1700. PT DROWSY, SLEPT MOST OF DAY OFF/ON BETWEEN DELIRIOUS EPISODES. RESTRAINTS MAINTAINED. PALLIATIVE CARE RN UPDATED POLST, IN CHART, STILL DNR.
--- NOTE | 2019-02-15 19:00 | NUR ---
ASSUMED CARE ASSUMED CARE OF PATIENT. AWAKE AND ALERT. ORIENTED TO SELF ONLY. FOLLOWS SIMPLE COMMANDS. AGITATED AND RESTLESS. COOPERATIVE WITH MOST CARE, BUT IS OCCASIONALLY UNCOOPERATIVE. YELLS OUT. BILATERAL SOFT WRIST RESTRAINTS IN PLACE D/T PT PULLING OFF TELEMETRY LEADS AND REACHING FOR IVs. MONITOR SHOWS NSR. SBP 180s. REMAINS ON 4L NC. RESPIRATIONS EVEN AND UNLABORED, BUT TACHYPNEIC WITH AGITATION. D5NS INFUSING @ 50CC/HR PER ORDER. SEE SHIFT ASSESSMENT FOR FULL ASSESSMENT.
--- NOTE | 2019-02-15 19:28 | NUR ---
PAIN INCREASED AGITATION AND RESTLESSNESS NOTED. PT THROWING LEGS OVER SIDE OF BED AND TRYING TO SIT UP. MOANING AND COMPLAINING OF BACK PAIN- MEDICATED WITH FENTANYL 50MCG IV AT THIS TIME.
--- NOTE | 2019-02-15 20:35 | NUR ---
AGITATION PT WITH INCREASED AGITATION. REFUSING ORAL MEDS AND KICKING LEGS UP TOWARDS RN. ATTEMPTING TO SWAT HANDS AT RN. MEDICATED WITH ATIVAN 1MG IV AT THIS TIME FOR AGITATION.
--- NOTE | 2019-02-15 22:00 | NUR ---
AGITATION PT AGAIN WITH INCREASED RESTLESSNESS. STATES "I NEED TO PEE." ATTEMPTED TO HELP PT USE URINAL, BUT PT IS UNABLE TO VOID. VARELA CATHETER PLACED AT THIS TIME D/T URINARY RETENTION AND PT BEING UNCOOPERATIVE WITH CARE.
--- NOTE | 2019-02-15 22:30 | NUR ---
NICHOLE DISCUSSED PLACEMENT OF VARELA CATHETER WITH ALDO ANDREW NP, AT THIS TIME. WILL DISCUSS WITH DR. VILLAFANA IN AM PER ALDO ANDREW.
[2019-02-16 03:46] LABS: Hematocrit 34.4 % (37.0-53.0); Hemoglobin 10.7 g/dL (13.5-17.5)
[2019-02-16 04:01] LABS: Albumin, Blood 2.6 g/dL (3.4-5.0); Anion Gap 10 mmol/L (6-16); Blood Urea Nitrogen 39 mg/dL (8-24); Bun/Creatinine Ratio 8.1 (12.0-20.0); CO2, Blood 27 mmol/L (21-32); Calcium, Blood 8.5 mg/dL (8.5-10.1); Chloride, Blood 101 mmol/L (98-108); Creatinine, Blood 4.83 mg/dL (0.60-1.20); Glomerular Filtration Rate 12 (60-); Glucose, Blood 156 mg/dL (70-99); Magnesium, Blood 2.1 mg/dL (1.6-2.4); Phosphorus, Blood 5.5 mg/dL (2.5-4.9); Potassium, Blood 4.6 mmol/L (3.5-5.5); Sodium, Blood 138 mmol/L (136-145)
--- NOTE | 2019-02-16 06:19 | NUR ---
SHIFT SUMMARY NO ACUTE CHANGES DURING NOC. PT CONTINUES TO BE ORIENTED TO SELF ONLY. FOLLOWS SIMPLE COMMANDS, BUT CONTINUES TO BE UNCOOPERATIVE AT TIMES. BILATERAL SOFT WRIST RESTRAINTS REMAIN IN PLACE. CALLS OUT OCCASIONALLY AND ATTEMPTS TO CLIMB OUT OF BED. MEDICATED WITH ATIVAN 1MG IV X 1. MEDICATED WITH FENTANYL 50MCG IV X 1 DURING SHIFT FOR C/O BACK PAIN. CONTINUES WITH HYPERTENSION. MEDICATED WITH HYDRALAZINE 10MG IV X 3 DOSES TO KEEP SBP <180. VARELA PATENT AND DRAINING YELLOW URINE. D5NS CONTINUES AT 50CC/HR PER ORDER. WILL REPORT TO DAY SHIFT RN WHEN AVAILABLE.
--- NOTE | 2019-02-16 07:45 | NUR ---
Recieved report from Brielle PALM. Patient lying in bed supine with HOB at 15 degrees. He is on 4L O2 via NC and is getting updraft treatment currently and sats at 90%. He is able to communicate needs but is confused at times when asking question that take more than several words. He has 20ga IV to TRACI, dressing intact and site WNL's and is flushed and SL./ He also has 20ga IV in LFA dressing intact and infusing D5 NS at 50ml/hr.He has 16 Fr sanderson draining to gravity and he was getting upset and fighting with staff when trying to straight cath. HR 100's and systoic 170. Dr Crow was in room and assessing patient.
--- NOTE | 2019-02-16 09:36 | NUR ---
Patient was awake and sat him up at 90 degrees and he took am meds crushed with applesauce. Dialysis in room setting up. He tolerated coffee well. he refused breakfast as he was not very hungry and will try lunch. No changes in VS or O2. He has 99.9 temp and pulled covers off.
--- NOTE | 2019-02-16 11:30 | NUR ---
Patient continues in DSialysis , systolic 90-100 after meds and during dialysis. Rewpositioned for comfort as his hip was hurting. He continues on 4L O2 via NC and sats mid 90%'s.
--- NOTE | 2019-02-16 12:48 | NUR ---
Spiritual care visit conducted. Patient is sleeping and stuggles to awaken at the sound of his name. Patient is too fatigued to carry on much of a conversation. Patient stated that his legs hurt. The patient's RN, Armani, immediately addresses pain issues. I asked patient if he would like a prayer said for him and patient states that he does. I provided prayer for the patient and he fell back to sleep duing the brief prayer. I continue to remain available to patient and his family.
--- NOTE | 2019-02-16 13:30 | NUR ---
Patient has been resting shortly after dialysis. He complained of bilateral LE pain and medicated with 50 mcg fentayl and has been resting since. He remains on 4L O2 and sats low to mid 90%'s. His systolic 90-100's since am meds and dialysis.
--- NOTE | 2019-02-16 15:30 | NUR ---
PT had patient up sitting on edge of bed qand he awoke aqnd was able to communicate well. He is still alittle confused of place and time. He started to doze and medicated shortly after and he tolerated meds crushed in apple sauce. VSS. He remains on 4L O2 and sats mid 90%'s.
--- NOTE | 2019-02-16 17:30 | NUR ---
Gave full bath and changed linen. He sat up in bed and was able to feed self and ate 100 % of dinner and fluids without help. He was able to swallow po meds with ensure. He is more awake and follow commands well.
--- NOTE | 2019-02-16 19:00 | NUR ---
ASSUMED CARE ASSUMED CARE OF PATIENT. AWAKE AND ALERT. VISITING WITH FAMILY. REPOSITIONS SELF IN BED WITHOUT DIFFICULTY. DENIES C/O PAIN OR DISCOMFORT AT THIS TIME. ORIENTED TO SELF ONLY AT THIS TIME. FOLLOWS SIMPLE COMMANDS. MONITOR SHOWS NSR. SBP 90-100s. VARELA PATENT AND DRAINING YELLOW URINE. HEEL DRSGS NOTED. CONTACT ISOLATION FOR VRE IN URINE. SEE SHIFT ASSESSMENT FOR FULL ASSESSMENT.
[2019-02-17 03:30] LABS: Hematocrit 29.8 % (37.0-53.0); Hemoglobin 9.4 g/dL (13.5-17.5)
[2019-02-17 03:47] LABS: Albumin, Blood 2.3 g/dL (3.4-5.0); Anion Gap 8 mmol/L (6-16); Blood Urea Nitrogen 32 mg/dL (8-24); Bun/Creatinine Ratio 8.3 (12.0-20.0); CO2, Blood 30 mmol/L (21-32); Calcium, Blood 8.1 mg/dL (8.5-10.1); Chloride, Blood 97 mmol/L (98-108); Creatinine, Blood 3.85 mg/dL (0.60-1.20); Glomerular Filtration Rate 16 (60-); Glucose, Blood 279 mg/dL (70-99); Magnesium, Blood 2.3 mg/dL (1.6-2.4); Potassium, Blood 4.4 mmol/L (3.5-5.5); Sodium, Blood 135 mmol/L (136-145)
--- NOTE | 2019-02-17 06:01 | NUR ---
SHIFT SUMMARY NO ACUTE CHANGES DURING NOC. SLEPT WHEN UNDISTURBED. ROUSES TO VERBAL STIMULI. CONTIMUES TO BE ORIENTED TO SELF ONLY. OCCASIONAL CONFUSED CONVERSATION. PT IS IRRITABLE AT TIMES, BUT IS COOPERATIVE WITH CARE. DENIED C/O PAIN T/O NOC. O2 @ 4L NC. RESPIRATIONS EVEN AND UNLABORED AT REST. SLIGHTLY TACHYPNEIC WITH EXERTION. VSS. VARELA PATENT AND DRAINING TO GRAVITY- 50CC URINE OUTPUT DURING SHIFT. SOFT, FORMED BM X 2. WILL REPORT TO DAY SHIFT RN WHEN AVAILABLE.
--- NOTE | 2019-02-17 10:12 | NUR ---
0800 PT EASILY AROUSED AND ANSWERING QUESTIONS APPROP. PT DENIES CONSTANT PAIN BUT NOTES PAIN IN THE R HEEL WHICH WAS REDRESSED WITH HEEL DSG AND FLOATED ON PILLOW. TRACI IV D/C. O2 NOTED AT 4L W/O RESP DISTRESS.
--- NOTE | 2019-02-17 14:24 | NUR ---
TRANSFER REPORT GIVEN TO CLIFF PALM ON PCU. PT RECIEVING H.D.
--- NOTE | 2019-02-17 19:42 | NUR ---
SHIFT SUMMARY PT ALERT AND ORIENTED TO SELF AND FOLLOWING DIRECTIONS. VS STABLE. PT RECEIVED HEMODIALYSIS TODAY. O2 SATS HAVE REMAINED ABOVE 90% ON 4L NC. PT DENIES ANY PAIN. CGB OF [address] VILLAFANA AWARE WITH CHANGES TO SLIDING SCALE. PT MEDICATED PER ORDERS. REPORT GIVEN TO ORACLE MANAGER RN.
--- NOTE | 2019-02-17 20:30 | NUR ---
BG 496. PT COVERED WITH SS AND LANTUS PER EMAR. PROVIDER NOTIFIED. NEW ORDER TO CHECK BG AT 2215 AND COVER WITH SS.
--- NOTE | 2019-02-17 20:34 | NUR ---
1949 2 CC AIR REMOVED FROM TR BAND. NO BLEED NO HEMATOMA. 2019 2 CC REMOVED FROM TR BAND NO BLEED NO HEMATOMA.
[2019-02-17 20:50] LABS: Glucose, Blood 496 mg/dL (70-99)
--- NOTE | 2019-02-17 22:25 | NUR ---
MILD IMPROVEMENT WITH BG OF 421. PT COVERED WITH SS PER ORDER. PROVIDER NOTIFED. ORDER TO CHECK BG AGAIN AT 0300 AND COVER WITH SS IF NEEDED.
[2019-02-18 04:06] LABS: Hematocrit 28.2 % (37.0-53.0); Hemoglobin 8.7 g/dL (13.5-17.5)
[2019-02-18 04:29] LABS: Albumin, Blood 2.2 g/dL (3.4-5.0); Anion Gap 7 mmol/L (6-16); Blood Urea Nitrogen 34 mg/dL (8-24); Bun/Creatinine Ratio 9.6 (12.0-20.0); CO2, Blood 31 mmol/L (21-32); Calcium, Blood 8.3 mg/dL (8.5-10.1); Chloride, Blood 103 mmol/L (98-108); Creatinine, Blood 3.55 mg/dL (0.60-1.20); Glomerular Filtration Rate 18 (60-); Glucose, Blood 89 mg/dL (70-99); Magnesium, Blood 2.4 mg/dL (1.6-2.4); Phosphorus, Blood 4.3 mg/dL (2.5-4.9); Sodium, Blood 141 mmol/L (136-145)
--- NOTE | 2019-02-18 05:07 | NUR ---
SHIFT SUMMARY: PT ALERT AND ORIENTED TO SELF AND SURROUNDINGS T/O NIGHT. CALM AND COOPERATIVE WITH CARE. VS WNL, O2 >90% ON 3 L PER NC. BG ELEVATED LAST NIGHT AT 496. COVERED WITH LANTUS AND SS. KAMRAN NOTIFIED. COVERED AGAIN FOR BG OF 421. BG NOW STABLE AT 95. NSR PER [employer] SUPERVISOR. MEPILEX INTACT TO BILAT HEELS. LEGS ELEVATED ON PILLOWS. PT W/O ANY COMPLAINTS T/O NIGHT.
--- NOTE | 2019-02-18 06:51 | NUR ---
BG 65 THIS AM. GIVEN CUP OF ORANGE JUICE. BG NOW AT 144.
--- NOTE | 2019-02-18 10:05 | NUR ---
CALLED NÉSTOR CHO AND GAVE REPORT FOR PT TRANSFER TO MEDICAL FLOOR. NO FURTHER QUESTIONS AT THE TIME OF REPORT.
--- NOTE | 2019-02-18 14:47 | NUR ---
Spiritual care visit conducted. Patient is lying in bed and alert. Patient is very talkative and clearly appreciates social interaction. Patient has a little trouble remembering and articulated certain things but the more he talked the better his communication got. I listened empathically, provided companionship and prayer. Patient responded well and showed evidence of an elevated mood. Patient thanked me for the visit.
--- NOTE | 2019-02-18 17:53 | NUR ---
SUMMARY PT SITTING UP IN BED EATING HIS DINNER, PT WAS TRANSFERRED UP FROM PCU AFTER DIALYSIS, PT IS PLEASANTLY CONFUSED, DID WORK WITH PT/OT, WILL CONT TO MONITOR
--- NOTE | 2019-02-18 23:29 | NUR ---
2100 PT VERY AGITATED AND ATTEMPTING CLIMB OOB WHILE PULLING OF O2 AND GRABING AT IV AND VARELA CATHETER, UNABLE TO REDIRECT PATIENT, DR PEÑA CALLED CONTACTED WITH ORDER AVRIL VEST, ATIVAN 1MG IVP GIVEN. BED ALARM APPLIED. 2199 PT RESTING MORE COMFORTABLY AND REPOSITIONED X 2 ASSIST. 2321 PT AGAIN BECOMING MORE AGITATED, ALERT TO PERSON ONLY. AVRIL VEST INTACT, PT ATTEMPTING PULL AT IV/VARELA, UNDABLE TO REDIRECT, HALDOL 3MG IVP GIVEN, BED ALARM APPLIED.
--- NOTE | 2019-02-19 03:35 | NUR ---
SHIFT SUMMARY: 84 Y/O MALE AT BEGINNING OF SHIFT WAS VERY AGITATED AND WAS UNABLE TO RELAX AFTER ATIVAN 1MG WAS GIVEN. PT WAS ATTEMPTING CLIMB OOB, PULL AT IV AND VARELA AND UNABLE TO FOLLOW ANY REDIRECTION. PT CONFUSED X 4 AND ALERT PERSON ONLY. MD NOTIFIED AND PT WAS PLACED IN AVRIL VEST. PT RESTED COMFORTABLY REST OF EVENING WHILE WEARING O2 AT 2L/M PER NASAL CANNULA. PTS BED ALARM APPLIED, BED LOW POSITION, CALL LIGHT AT SIDE.
[2019-02-19 05:31] LABS: BASOPHILS ABSOLUTE AUTO 0.07 K/mm3 (0.00-0.23); BASOPHILS PERCENT AUTO 1 % (0-2); EOSINOPHILS ABSOLUTE AUTO 0.56 K/mm3 (0.00-0.68); EOSINOPHILS PERCENT AUTO 6 % (0-6); Hematocrit 32.5 % (37.0-53.0); Hemoglobin 10.3 g/dL (13.5-17.5); IMMATURE GRAN ABSOLUTE AUTO 0.07 K/mm3 (0.00-0.10); IMMATURE GRAN PERCENT AUTO 1 % (0-1); LYMPHOCYTES ABSOLUTE AUTO 1.88 K/mm3 (0.84-5.20); LYMPHOCYTES PERCENT AUTO 20 % (21-46); MONOCYTES ABSOLUTE AUTO 0.81 K/mm3 (0.16-1.47); MONOCYTES PERCENT AUTO 9 % (4-13); Mean Corpuscular HGB 30.4 pg (26.0-34.0); Mean Corpuscular HGB Conc 31.7 g/dL (31.5-36.5); Mean Corpuscular Volume 96 fL (80-100); Mean Platelet Volume 10.1 fL (9.1-12.4); NEUTROPHILS ABSOLUTE AUTO 6.02 K/mm3 (1.96-9.15); NEUTROPHILS PERCENT AUTO 64 % (41-73); Platelet Count 399 K/mm3 (150-400); RDW Coefficient Variation 14.8 % (11.7-14.2); RDW Standard Deviation 52.4 fL (35.1-46.3); Red Blood Cell Count 3.39 M/mm3 (4.30-5.90); White Blood Cell Count 9.41 K/mm3 (4.00-11.30)
[2019-02-19 05:51] LABS: Albumin, Blood 2.4 g/dL (3.4-5.0); Anion Gap 9 mmol/L (6-16); Blood Urea Nitrogen 39 mg/dL (8-24); Bun/Creatinine Ratio 10.8 (12.0-20.0); CO2, Blood 30 mmol/L (21-32); Calcium, Blood 8.2 mg/dL (8.5-10.1); Chloride, Blood 93 mmol/L (98-108); Creatinine, Blood 3.62 mg/dL (0.60-1.20); Glomerular Filtration Rate 17 (60-); Glucose, Blood 481 mg/dL (70-99); Magnesium, Blood 2.5 mg/dL (1.6-2.4); Potassium, Blood 4.3 mmol/L (3.5-5.5); Sodium, Blood 132 mmol/L (136-145)
--- NOTE | 2019-02-19 06:32 | NUR ---
CBG 481, DR AL NOTIFIED WITH ORDERS GIVE HUMALOG 12 UNITS SQ, NOW
--- NOTE | 2019-02-19 10:16 | NUR ---
PT LETHARGIC THIS AM, POSSIBLY R/T ATIVAN AND HALDOL GIVEN LAST NIGHT. ABLE TO ARROUSE PT WITH VERBAL STIMULI, ALTHOUGH HE WILL SHORTLY CLOTHES EYES AFTERWARDS. PT UNABLE TO SAFELY TAKE PO MEDS, FLUIDS, AND FOOD. PT TO DIALYSIS ROOM AT 0900.
--- NOTE | 2019-02-19 12:19 | NUR ---
PT RETURNED FROM DIALYSIS. CBG RESULTS 46. PT IS ALERT AND CONVERSIVE, PT IS EATING HIS LUNCH INDEPENDETLY AT THIS TIME.
--- NOTE | 2019-02-19 18:32 | NUR ---
SHIFT SUMMARY PT WAS SLEEPING AT THE BEGINNING OF THE SHIFT AND WAS DIFFICULT TO ARROUSE. PT WENT TO DIALYSIS THIS MORNING, WAS MORE ALERT UPON RETURN, ORIENTATED 3X. PT DID NOT TRY TO GET OUT OF BED, AND VEST WAS DISCONTINUED. PTS BLOOD GLUCOSE REMAINED UNSTABLE AND WAS CHECKED Q2H. PT IS ON 2L VIA NC, DENIES ANY SOB. PT REPORTS CONTINUED FOOT PAIN, WHICH IS WELL MANAGED WITH ORDERS, DRESSING TO BILATERAL HEELS, C/D/. PT DENES NAUSEA. PT HAS BECOME LESS ORIENTATED AND INCREASINGLY CONFUSED DURING THE LAST HOUR.
--- NOTE | 2019-02-19 19:56 | NUR ---
PTS CBG 448, DR PEÑA NOTIFIED WITH ORDERS.
--- NOTE | 2019-02-20 04:15 | NUR ---
SHIFT SUMMARY: 84 Y/O MALE RESTED COMFORTABLY ALL EVENING WITH NO ISSUES NOTED WITH ATTEMPTING CLIMB OOB. PTS THOUGHT PROCESS IS ORGANIZED AND PATIENT ABLE TO FOLLOW ALL SIMPLE VERBAL COMMANDS. PT VOICED PAIN 7/10 BILATERAL LOWER FEET WITH OXYCONDONE 5MG GIVEN WITH RELIEF NOTED. PT WEARING O2 AT 5L/M PER NASAL CANNULA WITH O2 SATS AVERAGING 90%. PTS BLOOD SUGAR AT [address] PEÑA ADVISED. PTS CBG WAS RECHECKED AT 2300, RESULTS WERE 291. PTS DRESSING TO BILATERAL HEELS ARE DRY AND INTACT. PT DENIES NAUSEA. PTS BED ALARM APPLIED, BED LOW POSITION, CALL LIGHT AT SIDE.
[2019-02-20 04:56] LABS: Hematocrit 31.6 % (37.0-53.0)
[2019-02-20 05:36] LABS: Albumin, Blood 2.3 g/dL (3.4-5.0); Anion Gap 7 mmol/L (6-16); Blood Urea Nitrogen 38 mg/dL (8-24); Bun/Creatinine Ratio 10.8 (12.0-20.0); CO2, Blood 33 mmol/L (21-32); Calcium, Blood 8.3 mg/dL (8.5-10.1); Chloride, Blood 92 mmol/L (98-108); Creatinine, Blood 3.51 mg/dL (0.60-1.20); Glomerular Filtration Rate 18 (60-); Glucose, Blood 238 mg/dL (70-99); Magnesium, Blood 2.4 mg/dL (1.6-2.4); Phosphorus, Blood 3.6 mg/dL (2.5-4.9); Potassium, Blood 4.3 mmol/L (3.5-5.5); Sodium, Blood 132 mmol/L (136-145)
--- NOTE | 2019-02-20 10:02 | NUR ---
0900 PT RECIEVING DIALYSIS IN ROOM, BP MEDS HELD TILL AFTER DIALYSIS.
--- NOTE | 2019-02-20 16:47 | NUR ---
SHIFT ASSESSMENT PT ALTERS AND HAS INTERMITTENT CONFUSION, HE BECAME CONFUSED AFTER LUNCH AND WAS PULLING AT URINARY CATH AND IV, PT REORIENTATED EASILY. PT BEDREST AT BASELINE. PT DOES NOT USE CALL LIGHT APPROPRIATLY, ANTICIPATE NEEDS, BED ALARM ON. DIALYSIS NURSE REPORTED REMOVED TWO LTRS OF FLUID DURING DIALYSIS. HELD BLOOD PRESSURE MEDICATIONS PREVIOUS TO DIALYSIS AND ADMINISTERED AFTER PROCEDURE. PT OXYGEN REQUIRED INCREASE OF OXYGEN TO 5L VIA NC. PT BLOOD GLUCOSE LEVELS REMAINED ELEVATED BUT STABLE. BILATERAL HEEL DRESSINGS CHANGED, PT REPORTS CONTINOUS PAIN TO THOSE SITES WHICH IS WELL MANAGED WITH CURRENT ORDERS. PT DENIES NAUSEA, AND SOB.
--- NOTE | 2019-02-21 04:14 | NUR ---
SHIFT SUMMARY: 84 Y/O MALE HAD RESTLESS NIGHT MIDDLE NIGHT WITH COUPLE ATTEMPTS CLIMB OOB, REDIRECTION AND HALDOL 3MG IVP WITH RELIEF NOTED. PT WEARING O2 AT 5L/M PER NASAL CANNULA, LUNG SOUNDS ARE DIMINISHED THROUGHOUT. PT C/O BILATERAL LOWER FEET PAIN WITH OXYCODONE 5MG PO GIVEN WITH RELIEF FELT. PT DENIES NAUSEA. PTS BED ALARM APPLIED, BED LOW POSITION, CALL LIGHT AT SIDE.
[2019-02-21 05:32] LABS: BASOPHILS ABSOLUTE AUTO 0.06 K/mm3 (0.00-0.23); BASOPHILS PERCENT AUTO 1 % (0-2); EOSINOPHILS ABSOLUTE AUTO 0.94 K/mm3 (0.00-0.68); EOSINOPHILS PERCENT AUTO 9 % (0-6); Hematocrit 31.3 % (37.0-53.0); Hemoglobin 10.1 g/dL (13.5-17.5); IMMATURE GRAN PERCENT AUTO 1 % (0-1); LYMPHOCYTES PERCENT AUTO 23 % (21-46); MONOCYTES ABSOLUTE AUTO 0.67 K/mm3 (0.16-1.47); MONOCYTES PERCENT AUTO 6 % (4-13); Mean Corpuscular HGB 30.1 pg (26.0-34.0); Mean Corpuscular HGB Conc 32.3 g/dL (31.5-36.5); Mean Platelet Volume 9.7 fL (9.1-12.4); NEUTROPHILS ABSOLUTE AUTO 6.32 K/mm3 (1.96-9.15); NEUTROPHILS PERCENT AUTO 60 % (41-73); Platelet Count 374 K/mm3 (150-400); RDW Coefficient Variation 13.9 % (11.7-14.2); RDW Standard Deviation 46.9 fL (35.1-46.3); Red Blood Cell Count 3.36 M/mm3 (4.30-5.90); White Blood Cell Count 10.49 K/mm3 (4.00-11.30)
[2019-02-21 05:42] LABS: Mean Corpuscular Volume 93 fL (80-100)
[2019-02-21 06:03] LABS: Alanine Aminotransfer (ALT/SGP 17 U/L (12-78); Albumin, Blood 2.4 g/dL (3.4-5.0); Albumin/Globulin Ratio 0.5 (0.8-1.8); Alk Phos 75 U/L (50-136); Anion Gap 8 mmol/L (6-16); Aspartate Aminotrans (AST/SGOT 22 U/L (12-37); Bilirubin, Direct 0.1 mg/dL (0.0-0.3); Bilirubin, Indirect 0.3 mg/dL (0.1-0.7); Bilirubin, Total 0.4 mg/dL (0.1-1.0); Blood Urea Nitrogen 35 mg/dL (8-24); Bun/Creatinine Ratio 11.1 (12.0-20.0); CHOL/HDL RATIO 2.1; CO2, Blood 30 mmol/L (21-32); Calcium, Blood 8.3 mg/dL (8.5-10.1); Chloride, Blood 90 mmol/L (98-108); Cholesterol 87 mg/dL (50-200); Creatinine, Blood 3.16 mg/dL (0.60-1.20); Globulin, Blood 4.5 g/dL (2.2-4.0); Glomerular Filtration Rate 20 (60-); Glucose, Blood 177 mg/dL (70-99); HDL Cholesterol 42 mg/dL (>39); LDL/HDL RATIO 0.7; Low Density Lipoprotein Chol 28 mg/dL (0-110); Magnesium, Blood 2.3 mg/dL (1.6-2.4); Phosphorus, Blood 4.3 mg/dL (2.5-4.9); Potassium, Blood 4.2 mmol/L (3.5-5.5); Sodium, Blood 128 mmol/L (136-145); Total Protein, Blood 6.9 g/dL (6.4-8.2); Triglycerides 83 mg/dL (30-160); Very Low Density Lipoprot Chol 16 mg/dL (6-32)
--- NOTE | 2019-02-21 17:31 | NUR ---
SHIFT SUMMARY: PT HAS BEEN SLEEPING THROUGH OUT MOST OF THIS SHIFT. PT WAS A&OX3 THIS AM AND WAS UP IN A CHAIR FOR BREAKFAST. PT RETURNED TO BED AFTER BREAKFAST AND SLEPT IN BED AFTER. PT IS AROUSABLE AND WOKE TO EAT DURING MEALS. PT IS CALM AND COOPERATIVE. PTS WOUNDS ON HEELS ARE BANDAGED WITH MEPILEX WHICH ARE DRY AND APPEAR CLEAN. WILL CONTINUE TO MONITOR.
--- NOTE | 2019-02-21 19:27 | NUR ---
SN ASSESSMENT I AGREE WITH THE SN ADELE LEAL ASSESSMENT AND CARE OF THE PT
[2019-02-22 05:31] LABS: BASOPHILS ABSOLUTE AUTO 0.06 K/mm3 (0.00-0.23); BASOPHILS PERCENT AUTO 1 % (0-2); EOSINOPHILS ABSOLUTE AUTO 0.75 K/mm3 (0.00-0.68); EOSINOPHILS PERCENT AUTO 7 % (0-6); Hematocrit 30.8 % (37.0-53.0); IMMATURE GRAN PERCENT AUTO 1 % (0-1); LYMPHOCYTES ABSOLUTE AUTO 2.49 K/mm3 (0.84-5.20); LYMPHOCYTES PERCENT AUTO 22 % (21-46); MONOCYTES ABSOLUTE AUTO 0.63 K/mm3 (0.16-1.47); MONOCYTES PERCENT AUTO 5 % (4-13); Mean Corpuscular HGB 30.1 pg (26.0-34.0); Mean Corpuscular HGB Conc 32.5 g/dL (31.5-36.5); Mean Corpuscular Volume 93 fL (80-100); Mean Platelet Volume 9.8 fL (9.1-12.4); NEUTROPHILS ABSOLUTE AUTO 7.55 K/mm3 (1.96-9.15); NEUTROPHILS PERCENT AUTO 65 % (41-73); Platelet Count 382 K/mm3 (150-400); RDW Coefficient Variation 13.9 % (11.7-14.2); RDW Standard Deviation 47.5 fL (35.1-46.3); Red Blood Cell Count 3.32 M/mm3 (4.30-5.90); White Blood Cell Count 11.58 K/mm3 (4.00-11.30)
--- NOTE | 2019-02-22 05:47 | NUR ---
SUMMARY: PT BEGAN SHIFT A/OX3 AND TOOK PILLS W/O DIFFICULTY BUT WAS VERY TIRED AT MN AND WOULDN'T WAKE TO TAKE DOSE OF ZYVOX. HE ROUSED BUT SHOOK HEAD NO TO PROMPTS TO TAKE MED AND KEPT EYES SHUT DESPITE ENCOURAGEMENT. VS WERE STABLE AT THAT TIME DESPITE APPEARING VERY DROWSY, POSSIBLY HS SEROQUEL INDUCED. HE REMAINS ON 5L HUMIDIFIED O2 W/RESPS E/U AND LS DIM T/O. MEPILEXES TO HEELS REMAIN C/D/I W/FEET ELEVATED ON PILLOWS, GREAT TOE WOUND IS LARY-SEE PHOTOS FOR DETAILS. PT DENIED PAIN/COMPLAINTS. VSS/AFEBRILE, NO ACUTE CHANGES. WILL MONITOR AND REPORT TO DAY RN. POSSIBLE D/C HOME TO REHAB TODAY.
[2019-02-22 06:04] LABS: Alanine Aminotransfer (ALT/SGP 15 U/L (12-78); Albumin, Blood 2.3 g/dL (3.4-5.0); Albumin/Globulin Ratio 0.5 (0.8-1.8); Alk Phos 77 U/L (50-136); Anion Gap 8 mmol/L (6-16); Aspartate Aminotrans (AST/SGOT 16 U/L (12-37); Bilirubin, Total 0.4 mg/dL (0.1-1.0); Blood Urea Nitrogen 53 mg/dL (8-24); Bun/Creatinine Ratio 11.9 (12.0-20.0); CO2, Blood 29 mmol/L (21-32); Calcium, Blood 8.4 mg/dL (8.5-10.1); Chloride, Blood 91 mmol/L (98-108); Creatinine, Blood 4.44 mg/dL (0.60-1.20); Globulin, Blood 4.7 g/dL (2.2-4.0); Glomerular Filtration Rate 14 (60-); Glucose, Blood 112 mg/dL (70-99); Magnesium, Blood 2.4 mg/dL (1.6-2.4); Phosphorus, Blood 5.7 mg/dL (2.5-4.9); Potassium, Blood 4.7 mmol/L (3.5-5.5); Sodium, Blood 128 mmol/L (136-145)
[2019-02-22] MEDS ORDERED: NOVOLOG FL100 UNIT/1 (16:12)
[2019-02-22] MEDS ORDERED: LINE600 PO (16:14)
[2019-02-22] MEDS ORDERED: QUET100 PO (16:14)
[2019-02-22] MEDS ORDERED: ACET500 PO (16:15)
--- NOTE | 2019-02-22 17:36 | NUR ---
DISCHARGE NOTE: PT WAS ALERT AND ORIENTED WHILE AWAKE THROUGH THIS SHIFT. PT HAS BEEN SLEEPING INTERMITENTLY. PT HAD A DIALYSIS TREATMENT THIS AM. PT HAS BEEN UP IN THE BEDSIDE CHAIR FOR BREAKFAST THIS AM. MEPILEX BANDAGES WERE CHANGED PRIOR TO PT DISCHARGE WITH PHOTOS TAKEN OF WOUNDS ON PTS HEELS. IV WAS REMOVED PRIOR TO DISCHARGE. PT WAS DISCHARGED WITH VARELA CATHETER IN PLACE, STATING THAT VARELA IS USED AT HOME ([facility]). PT TRANSPORTED IN WHEELCHAIR BY [facility].
== END 2019-02-22 17:01 | DRG 689 ==
LOC: ER 07:58 → ICUE 11:06 → MEDS 11:06 → ERHOLD 11:06 → ICUE 14:20 → MEDS 14:23 → ICUE 02-14 06:10 → PCU 02-17 13:47 → MEDS 02-18 09:32 → ENPENDDIS 02-22 14:43 → MEDS 02-22 17:01
PROVIDERS: Internal Medicine; Internal Medicine Nephrology; Physician Assistant; ADMIT Hospitalist
PROC: 5A1D70Z Performance of Urinary Filtration, Intermittent, Less than 6 Hours Per Day (ICD-10-PCS; principal; 2019-02-14)
PROC: 5A1D70Z Performance of Urinary Filtration, Intermittent, Less than 6 Hours Per Day (ICD-10-PCS; 2019-02-16)
PROC: 30233N1 Transfusion of Nonautologous Red Blood Cells into Peripheral Vein, Percutaneous Approach (ICD-10-PCS; 2019-02-16)
PROC: 5A1D70Z Performance of Urinary Filtration, Intermittent, Less than 6 Hours Per Day (ICD-10-PCS; 2019-02-18)
PROC: 5A1D70Z Performance of Urinary Filtration, Intermittent, Less than 6 Hours Per Day (ICD-10-PCS; 2019-02-20)
PROC: 5A1D70Z Performance of Urinary Filtration, Intermittent, Less than 6 Hours Per Day (ICD-10-PCS; 2019-02-22)
DX: N39.0 Urinary tract infection, site not specified (principal); J96.01 Acute respiratory failure with hypoxia; N18.6 End stage renal disease; G93.41 Metabolic encephalopathy; J44.1 Chronic obstructive pulmonary disease with (acute) exacerbation; D69.0 Allergic purpura; N25.81 Secondary hyperparathyroidism of renal origin; I13.2 Hypertensive heart and chronic kidney disease with heart failure and with stage 5 chronic kidney disease, or end stage renal disease; I50.32 Chronic diastolic (congestive) heart failure; G93.49 Other encephalopathy; E87.1 Hypo-osmolality and hyponatremia; E87.70 Fluid overload, unspecified; Z99.2 Dependence on renal dialysis; N05.7 Unspecified nephritic syndrome with diffuse crescentic glomerulonephritis; D69.6 Thrombocytopenia, unspecified; E11.22 Type 2 diabetes mellitus with diabetic chronic kidney disease; Z79.4 Long term (current) use of insulin; E78.5 Hyperlipidemia, unspecified; F41.8 Other specified anxiety disorders; J84.10 Pulmonary fibrosis, unspecified; E11.649 Type 2 diabetes mellitus with hypoglycemia without coma; E11.51 Type 2 diabetes mellitus with diabetic peripheral angiopathy without gangrene
CPT/HCPCS: 36415; 36430; 36600; 51702; 70450; 71046; 80048; 80053; 80061; 80069; 81001; 82010; 82248; 82803; 82947; 83735; 84100; 84443; 85014; 85018; 85025; 85610; 86850; 86900; 86901; 86923; 87040; 87077; 87086; 87186; 93005; 93010; 94640; 94760; 96365-59; 96372-59; 97110; 97162; 97530; 99285-25; G0480; J0360; J0696; J0881; J1630; J1650; J2060; J2310; J3010; J7030; J7042; P9016